=== PATIENT | female | born 1945 | race Caucasian/White ===

== ENCOUNTER 2016-08-30 17:48 | Inpatient (IN) | payer OTHER ==
[~2016-08-30] VITALS: Ht 157.5 cm; Wt 88.0 kg
[~2016-08-30 17:48] MED LIST: ATOR80TA PO; HYDR25TA4 PO; LSN20 PO; METO50TA16 PO; OXYC1TAB3 PO; PLV75 PO; PRLSR20 PO
--- NOTE | 2016-08-30 19:11 | EMERGENCY ROOM VISIT NOTE ---
History First contact with patient: 18:19 (Geoff Luz MD) First contact with patient: 18:18 (Chad Conn M.D.) Chief Complaint: NEURO SYMPTOMS Stated Complaint: LIGHT HEADED,NUMBNESS OF L LEG, HEADACHE Nursing Triage Summary: Pt reports on Tuesday she started to get tingly on the left side of her body Pt reports she is also dizzy hx TIA in march 2016 (Geoff Luz MD) History of Present Illness The patient is a 71 year old female w/ hx of TIA currently on plavix, (Mar 2016 , Hx 2mm Aneurysm on MRA), HTN, HLD who presents to the Emergency Room with complaints of hx of numbness/tingling. On the morning of Tuesday, 08/27 patient experienced episode of ascending numbness/tingling of the LLE. Symptoms started at the toes and gradually encompassed the entire leg. Eventually patient sat down to recover. Her symptoms come and go and since onset have grown in frequency. She also reports associated LÓPEZ and episodic sensation of the room spinning. She denies LOC, weakness, CP, SOB, palpitation. She experienced similar symptoms during her previous TIA. Pt denies, fevers, chest pain, shortness of breath, nausea, vomiting, diarrhea, pain with urination, change in stool (Geoff Luz MD) Review of Systems See HPI for pertinent positives & negatives. A total of 10 systems reviewed and were otherwise negative. (Geoff Luz MD) Past Medical/Surgical History Medical Problems: (1) Stroke (Chda Conn M.D.) HTN HLD DVT TIA (Geoff Luz MD) Social History Smoking Status: Never Smoker Alcohol Use: none Drug Use: none Housing Status: lives with family Occupation Status: retired (Geoff Luz MD) Current/Historical Medications Scheduled Atorvastatin Calcium (Lipitor), 1 TAB PO DAILY Clopidogrel Bisulfate (Clopidogrel), 75 MG PO QAM Hydrochlorothiazide (Hctz), 25 MG PO QAM Lisinopril (Lisinopril), 40 MG PO QAM Metoprolol Tartrate (Lopressor) (Lopressor), 50 MG PO BID Omeprazole (Prilosec), 20 MG PO BID Allergies Coded Allergies: No Known Allergies (Unverified , 08/30/16) Physical Exam Vital Signs Date Time Temp Pulse Resp B/P Pulse Ox O2 Delivery O2 Flow Rate FiO2 08/30/16 23:24 73 20 114/71 97 Room Air 08/30/16 22:05 76 19 08/30/16 21:35 69 19 94 08/30/16 21:30 143/94 08/30/16 21:05 66 19 99 08/30/16 21:00 154/88 08/30/16 20:48 67 16 97 08/30/16 20:40 63 08/30/16 20:30 143/90 08/30/16 20:24 73 18 149/77 98 Room Air 08/30/16 20:22 149/77 08/30/16 20:00 74 18 128/81 96 Room Air 08/30/16 18:05 36.5 77 18 132/82 96 Room Air (Chad Conn M.D.) Physical Exam GENERAL: alert, well appearing, well nourished, no distress, non-toxic EYE EXAM: normal conjunctiva, PERRL and EOM's grossly intact NECK: supple, no nuchal rigidity, no adenopathy, non-tender LUNGS: Clear to auscultation. Normal chest wall mechanics HEART: no murmurs, S1 normal and S2 normal ABDOMEN: abdomen soft, non-tender, normo-active bowel sounds, no masses, no rebound or guarding. SKIN: no rashes and no bruising UPPER EXTREMITIES: upper extremities are grossly normal. LOWER EXTREMITIES: No pitting edema. NEURO EXAM: Normal sensorium, cranial nerves II-XII grossly intact, normal speech, no weakness of arms, no weakness of legs. No drift. Gross sensation intact. (Geoff Luz MD) Medical Decision & Procedures ER Provider Diagnostic Interpretation: HEAD CT NONCONTRAST CT DOSE: 601.98 mGy.cm HISTORY: Mental status change Stroke TECHNIQUE: Multiaxial CT images of the head were performed without the use of intravenous contrast. Comparison: 03/23/2016 Findings: The paranasal sinuses and mastoid air cells are clear. The calvarium and skull base are intact. The ventricles and sulci are within normal limits. There is no mass, hematoma, midline shift, or acute infarct. Impression: No acute intracranial abnormality. (Geoff Luz MD) Laboratory Results 3/27/17 20:00 Red Blood Count 4.00, Mean Corpuscular Volume 85.0, Mean Corpuscular Hemoglobin 28.5, Mean Corpuscular Hemoglobin Concent 33.5, Mean Platelet Volume 9.5, Neutrophils (%) (Auto) 58.4, Lymphocytes (%) (Auto) 33.3, Monocytes (%) (Auto) 6.7, Eosinophils (%) (Auto) 1.2, Basophils (%) (Auto) 0.2, Neutrophils # (Auto) 3.48, Lymphocytes # (Auto) 1.98, Monocytes # (Auto) 0.40, Eosinophils # (Auto) 0.07, Basophils # (Auto) 0.01 08/30/16 20:00 Test 08/30/16 20:00 08/30/16 20:06 White Blood Count 5.95 K/uL (4.8-10.8) Red Blood Count 4.00 M/uL (4.2-5.4) Hemoglobin 11.4 g/dL (12.0-16.0) Hematocrit 34.0 % (37-47) Mean Corpuscular Volume 85.0 fL (80-100) Mean Corpuscular Hemoglobin 28.5 pg (25-34) Mean Corpuscular Hemoglobin Concent 33.5 g/dl (32-36) Platelet Count 280 K/uL (130-400) Mean Platelet Volume 9.5 fL (7.4-10.4) Neutrophils (%) (Auto) 58.4 % Lymphocytes (%) (Auto) 33.3 % Monocytes (%) (Auto) 6.7 % Eosinophils (%) (Auto) 1.2 % Basophils (%) (Auto) 0.2 % Neutrophils # (Auto) 3.48 K/uL (1.4-6.5) Lymphocytes # (Auto) 1.98 K/uL (1.2-3.4) Monocytes # (Auto) 0.40 K/uL (0.11-0.59) Eosinophils # (Auto) 0.07 K/uL (0-0.5) Basophils # (Auto) 0.01 K/uL (0-0.2) RDW Standard Deviation 45.1 fL (36.4-46.3) RDW Coefficient of Variation 14.3 % (11.5-14.5) Immature Granulocyte % (Auto) 0.2 % Immature Granulocyte # (Auto) 0.01 K/uL (0.00-0.02) Prothrombin Time 10.5 SECONDS (9.0-12.0) Prothromb Time International Ratio 1.0 (0.9-1.1) Activated Partial Thromboplast Time 29.9 SECONDS (21.0-31.0) Partial Thromboplastin Ratio 1.2 Anion Gap 7.0 mmol/L (3-11) Est Creatinine Clear Calc Drug Dose 57.9 ml/min Estimated GFR () 70.8 Estimated GFR (Non- 61.1 BUN/Creatinine Ratio 24.1 (10-20) Bedside Glucose 80 mg/dl (70-90) Calcium Level 9.0 mg/dl (8.5-10.1) Troponin I < 0.015 ng/ml (0-0.045) Chemistry Specimen Hemolysis Bedside Prothrombin Time INR 1.0 (0.9-1.1) (Chad Conn M.D.) Medications Administered Medications (Trade) Dose Ordered Sig/Laz Route Start Time Stop Time Status Last Admin Dose Admin Ketorolac Tromethamine (Toradol Inj) 15 mg NOW STAT IV 08/30/16 21:00 08/30/16 21:01 DC 08/30/16 21:18 15 MG Ondansetron HCl (Zofran Inj) 4 mg NOW STAT IV 08/30/16 21:00 08/30/16 21:01 DC 08/30/16 21:17 4 MG (Chad Conn M.D.) Medical Decision Differential Diagnosis includes but is not limited to ischemic Stroke, hemorrhagic stroke, bells palsy, mass, neoplasm, migraine headache, seizure, subarachnoid hemorrhage, TIA, and transient global amnesia. 71 yo F wx hx of TIA (Mar 2016) on Plavix , HTN, HLD p/w progressive paresthesia of the LLE and vertigo sensation Acute LLE Paresthesia, vertigo Hx of TIA, similar symptoms to previous, could be due new TIA vs CVA CT Head: No acute intracranial abnormality ECG: NSR Troponin neg CBC: H/H 11.4/34/0 , otherwise unremarkable BMP: unremarkable INR: 1.0 -Given IV Toradol 15 mg for pain -Given IV Zofran 4 mg for nausea Discussed case with Dr. Cabrera on the Hospitalist who agreed to admit for further CVA workup (Geoff Luz MD) Resident Physician Supervision Note: Dr. Luz was resident physician during care of patient. I separately evaluated patient and did history and exam. I discussed the case with the resident and generally agree with the findings and plan. Please see my full H& P note for complete documentation. Documented By: Chad Conn MD (Chad Conn M.D.) Impression Primary Impression: Left leg paresthesias Additional Impression: Headache Departure Information Dispostion Admitted as an inpatient Referrals Nanci Null PA-C (PCP) Patient Instructions My [facility] Resident Tracking Resident Involvement: Resident Care Provided Care Provided: Adult ED (Geoff Luz MD) Problem Qualifiers Additional Impression: Headache Headache type: unspecified Headache chronicity pattern: unspecified pattern Intractability: not intractable Qualified Codes: R51 - Headache
--- NOTE | 2016-08-30 20:21 | DIAGNOSTIC IMAGING REPORT ---
HEAD CT NONCONTRAST CT DOSE: 601.98 mGy.cm HISTORY: Mental status change Stroke TECHNIQUE: Multiaxial CT images of the head were performed without the use of intravenous contrast. Comparison: 03/23/2016 Findings: The paranasal sinuses and mastoid air cells are clear. The calvarium and skull base are intact. The ventricles and sulci are within normal limits. There is no mass, hematoma, midline shift, or acute infarct. Impression: No acute intracranial abnormality. Electronically signed by: Familia Escalante M.D. 08/30/2016 8:20 PM Dictated Date/Time: 08/30/2016 8:19 PM
[2016-08-30 20:26] LABS: BASO % 0.2 %; BASO ABS # 0.01 K/uL (0-0.2); COMPLETE YES; EOS % 1.2 %; IG% 0.2 %; LYMPH % 33.3 %; LYMPH ABS # 1.98 K/uL (1.2-3.4); MEAN CORPUSCULAR HEMOGLOBIN 28.5 pg (25-34); MEAN CORPUSCULAR HGB CONC 33.5 g/dl (32-36); MEAN PLATELET VOLUME 9.5 fL (7.4-10.4); MONO % 6.7 %; NEUT % 58.4 %; PLATELET COUNT 280 K/uL (130-400); WHITE BLOOD COUNT 5.95 K/uL (4.8-10.8)
[2016-08-30 20:48] LABS: PARTIAL THROMBOPLASTIN RATIO 1.2; PROTHROMBIN TIME (PATIENT) 10.5 SECONDS (9.0-12.0)
[2016-08-30 20:55] LABS: BLOOD UREA NITROGEN 23 mg/dl (7-18); BUN/CREATININE RATIO 24.1 (10-20); CARBON DIOXIDE 30 mmol/L (21-32); CHLORIDE 105 mmol/L (98-107); CREATININE 0.95 mg/dl (0.60-1.20); GLUCOSE 93 mg/dl (70-99); POTASSIUM 4.2 mmol/L (3.5-5.1); SODIUM 142 mmol/L (136-145)
[2016-08-30] MEDS ORDERED: ONDANSETRON INJ 2 MG/ML 2 ML VIAL IV STA (21:00)
[2016-08-30] MEDS ORDERED: KETOROLAC TROMETHAMINE 30 MG/ML VIAL IV STA (21:00)
--- NOTE | 2016-08-30 22:12 | History and Physical ---
History & Physical Date & Time of Service: Aug 30, 2016 at 22:13 Chief Complaint: Light Headed,Numbness Of L Leg, Headache Primary Care Physician: Nanci Null PA-C History of Present Illness Source: patient This is a pleasant 71 y/o F with a history of TIA, HTN who presents with Left sided paraesthesias. She reports that about 5 days ago, she was going to her grandsons room and as she was lifting his comforter, she felt dizzy and felt as if she was falling to her right side. She sat down for about 15 mins after which her dizziness improved but she noted Left sided numbness/tingling. This persisted throughout the weekend but she did not inform her son or daughter in law. This morning she didnt feel too good and her left side was persistently numb and she mentions tingling in her head. She has some blurry vision with this that is intermittent. She denies speech disturbances, dysphagia, urinary/ bowel incontinence. She is able to walk without weakness in her lower extremities She presented similarly in Mar and had a TIA work-up which was largely unremarkable except for a 2 mm L MCA aneurysm. no Family history of strokes or hypercoagulable states Past Medical/Surgical History TIA HTN DVT Family History Cancer Hypertension Social History Smoking Status: Never Smoker Alcohol Use: none Drug Use: none Housing status: lives alone Occupational Status: retired Allergies Coded Allergies: No Known Allergies (Unverified , 08/30/16) Home Medications Scheduled Aspirin (Aspirin EC Low Dose), 81 MG PO QAM Atorvastatin Calcium (Lipitor), 1 TAB PO DAILY Clopidogrel Bisulfate (Clopidogrel), 75 MG PO QAM Hydrochlorothiazide (Hctz), 25 MG PO QAM Lisinopril (Lisinopril), 40 MG PO QAM Metoprolol Tartrate (Lopressor) (Lopressor), 50 MG PO BID Omeprazole (Prilosec), 20 MG PO BID Review of Systems Constitutional: No chills, No fever Eyes: + worsening of vision Respiratory: No cough, No dyspnea at rest, No dyspnea on exertion, No shortness of breath, No sputum, No wheezing Cardiovascular: No chest pain Abdomen: No diarrhea, No nausea, No pain, No vomiting Genitourinary - Female: No dysuria, No urinary frequency, No urinary incontinence, No urinary urgency Neurologic: + numbness/tingling, + vertigo, No memory loss, No paralysis, No weakness Physical Exam Vital Signs Date Time Temp Pulse Resp B/P Pulse Ox O2 Delivery O2 Flow Rate FiO2 08/30/16 21:00 154/88 08/30/16 20:48 67 16 97 08/30/16 20:40 63 08/30/16 20:30 143/90 08/30/16 20:24 73 18 149/77 98 Room Air 08/30/16 20:22 149/77 08/30/16 20:00 74 18 128/81 96 Room Air 08/30/16 18:05 36.5 77 18 132/82 96 Room Air General Appearance: no apparent distress Eyes: normal inspection, PERRL, EOMI ENT: hearing grossly normal Neck: supple, no adenopathy, thyroid normal, no JVD Respiratory/Chest: lungs clear, normal breath sounds, no respiratory distress, no accessory muscle use Cardiovascular: regular rate, rhythm, no edema, no murmur Abdomen/GI: normal bowel sounds, non tender, soft Back: no CVA tenderness Extremities/Musculoskelatal: no calf tenderness, normal capillary refill, no pedal edema 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, no motor/sensory deficits, alert, normal mood/affect, normal reflexes, oriented x 3, + pertinent finding (normal cerebellar testing, normal dysdiadochokinesia) Diagnostics Laboratory Results Results Past 24 Hours Test 08/30/16 20:00 Range/Units White Blood Count 5.95 4.8-10.8 K/uL Red Blood Count 4.00 4.2-5.4 M/uL Hemoglobin 11.4 12.0-16.0 g/dL Hematocrit 34.0 37-47 % Mean Corpuscular Volume 85.0 80-100 fL Mean Corpuscular Hemoglobin 28.5 25-34 pg Mean Corpuscular Hemoglobin Concent 33.5 32-36 g/dl Platelet Count 280 130-400 K/uL Mean Platelet Volume 9.5 7.4-10.4 fL Neutrophils (%) (Auto) 58.4 % Lymphocytes (%) (Auto) 33.3 % Monocytes (%) (Auto) 6.7 % Eosinophils (%) (Auto) 1.2 % Basophils (%) (Auto) 0.2 % Neutrophils # (Auto) 3.48 1.4-6.5 K/uL Lymphocytes # (Auto) 1.98 1.2-3.4 K/uL Monocytes # (Auto) 0.40 0.11-0.59 K/uL Eosinophils # (Auto) 0.07 0-0.5 K/uL Basophils # (Auto) 0.01 0-0.2 K/uL RDW Standard Deviation 45.1 36.4-46.3 fL RDW Coefficient of Variation 14.3 11.5-14.5 % Immature Granulocyte % (Auto) 0.2 % Immature Granulocyte # (Auto) 0.01 0.00-0.02 K/uL Prothrombin Time 10.5 9.0-12.0 SECONDS Prothromb Time International Ratio 1.0 0.9-1.1 Activated Partial Thromboplast Time 29.9 21.0-31.0 SECONDS Partial Thromboplastin Ratio 1.2 Sodium Level 142 136-145 mmol/L Potassium Level 4.2 3.5-5.1 mmol/L Chloride Level 105 98-107 mmol/L Carbon Dioxide Level 30 21-32 mmol/L Anion Gap 7.0 3-11 mmol/L Blood Urea Nitrogen 23 7-18 mg/dl Creatinine 0.95 0.60-1.20 mg/dl Est Creatinine Clear Calc Drug Dose 57.9 ml/min Estimated GFR () 70.8 Estimated GFR (Non- 61.1 BUN/Creatinine Ratio 24.1 10-20 Bedside Glucose 80 70-90 mg/dl Random Glucose 93 70-99 mg/dl Calcium Level 9.0 8.5-10.1 mg/dl Troponin I < 0.015 0-0.045 ng/ml Chemistry Specimen Hemolysis Impression Assessment and Plan This is a 71 y/o F who presents with left sided paraesthesias, concerning for TIA vs. CVA. No infectious/ metabolic etiologies obvious at this time. Left sided Paraesthesia and dizziness: CT head is negative Patient has already received circulatory imaging during previous admission that was largely unrevealing except for 2 mm L MCA aneurysm Will do a brain MRI but hold on Carotid u/s and MRA Continue Plavix, statin Consult Neurology Question need for hypercoagulable work up? troponin x 3 Echo HTN: continue Lisinopril, metoprolol Normocytic, normochromic anemia- stable f/u outpatient DVT: Proph Lovenox Level of Care Telemetry Resuscitation Status FULL RESUSCITATION Assessment and Plan Attending Addendum: I have physically seen and examined this patient, have directed their medical care, have supervised the medical residents activities, and agree with the H&P as noted above, with the following changes: The patient is awake, well-developed and adequately nourished, alert and oriented 3, normocephalic and atraumatic, lying in bed and in no acute distress. HEENT--PERRL, EOMI, mucous membranes and oropharynx dry. Neck--supple, no JVD or bruits, thyroid normal, trachea midline, no adenopathy. Heart--normal S1 and S2, no extra beats, no murmurs, rubs or gallops. Lungs--clear bilaterally with good air movement, no respiratory distress, no accessory muscle use. Abdomen--normal bowel sounds and soft, nontender and nondistended, no hernias or masses, no organomegaly. Extremities--no cyanosis, clubbing or edema. There are good distal pulses b/l. Dermatologic--normal skin turgor, normal color, warm and dry, no abnormal lymph nodes, no rash. Neurologic--cranial nerves II through XII grossly intact, decreased sensation left upper and lower extremities. Rheumatologic--normal range of motion, nontender, muscles and joints. Psychiatric--normal affect. Assessment and Plan: Left side paresthesias/hypertension--CT of the head negative this visit, with negative MRI, MRA and carotid studies at last admission. We'll order an MRI of the brain today for comparison. Continue clopidogrel 75 mg by mouth daily , lisinopril 40 mg by mouth every morning, and metoprolol tartrate 50 mg by mouth twice a day. Hold HCTZ 25 mg by mouth every morning. Add aspirin 81 mg by mouth every a.m. Hypercholesterolemia--continue atorvastatin. GERD--change omeprazole 20 mg by mouth twice a day pantoprazole 40 mg by mouth twice a day for formulary interchange.
--- NOTE | 2016-08-30 22:20 | EMERGENCY ROOM VISIT NOTE ---
History Report prepared by Beulah: Amada Reed Under the Supervision of: Dr. Chad Conn M.D. First contact with patient: 18:18 Chief Complaint: NEURO SYMPTOMS Stated Complaint: LIGHT HEADED,NUMBNESS OF L LEG, HEADACHE Nursing Triage Summary: Pt reports on Tuesday she started to get tingly on the left side of her body Pt reports she is also dizzy hx TIA in march 2016 History of Present Illness The patient is a 71 year old female who presents to the Emergency Room with complaints of intermittent and worsening left-sided numbness that started 3 days ago. The patient states that she experiences episodes of tingling and numbness that start in her left lower extremity then gradually ascended to encompass the whole left side of her body. Over the last couple days, episodes have been increasing in severity. She is also experiencing a diffuse headache and bilateral leg pain that is worse on the left than the right. She denies chest pain, trouble breathing, back pain, and abdominal pain. The patient had a TIA in March of 2016 and she states that her current symptoms feel similar to that. The patient has previously been diagnosed with a 2 mm aneurysm by MRI. The patient is on Plavix. Source of History: patient Onset: 3 days ago Position: other (left side of body) Quality: numbness Timing: intermittent, worsening Associated Symptoms: + headache, No abdominal pain, No back pain, No chest pain Note: bilateral leg pain left greater than right, no trouble breathing Review of Systems See HPI for pertinent positives & negatives. A total of 10 systems reviewed and were otherwise negative. Past Medical & Surgical Medical Problems: (1) Stroke Family History Cancer Hypertension Social History Smoking Status: Never Smoker Drug Use: none Housing Status: lives with family Current/Historical Medications Scheduled Atorvastatin Calcium (Lipitor), 1 TAB PO DAILY Clopidogrel Bisulfate (Clopidogrel), 75 MG PO QAM Hydrochlorothiazide (Hctz), 25 MG PO QAM Lisinopril (Lisinopril), 40 MG PO QAM Metoprolol Tartrate (Lopressor) (Lopressor), 50 MG PO BID Omeprazole (Prilosec), 20 MG PO BID Allergies Coded Allergies: No Known Allergies (Unverified , 08/30/16) Physical Exam Vital Signs Date Time Temp Pulse Resp B/P Pulse Ox O2 Delivery O2 Flow Rate FiO2 08/30/16 23:24 73 20 114/71 97 Room Air 3/27/17 22:05 76 19 08/30/16 21:35 69 19 94 08/30/16 21:30 143/94 08/30/16 21:05 66 19 99 08/30/16 21:00 154/88 08/30/16 20:48 67 16 97 08/30/16 20:40 63 08/30/16 20:30 143/90 08/30/16 20:24 73 18 149/77 98 Room Air 08/30/16 20:22 149/77 08/30/16 20:00 74 18 128/81 96 Room Air 08/30/16 18:05 36.5 77 18 132/82 96 Room Air Physical Exam GENERAL: Patient is well appearing and in no acute distress. HEENT: No acute trauma, normocephalic atraumatic, mucous membranes moist, no nasal congestion, no scleral icterus. NECK: No stridor, no adenopathy, no meningismus, trachea is midline. LUNGS: No dyspnea. Clear to auscultation and equal bilaterally. No wheeze, no rhonchi. HEART: Regular rate and rhythm. No murmurs, rubs, gallops appreciated. ABDOMEN: Soft, nontender, bowel sounds positive, no masses appreciated, no peritonitis. BACK: No midline tenderness, no CVA tenderness EXTREMITIES: Normal motion all extremities, no cyanosis, no edema. NEUROLOGIC: Alert and oriented, no acute motor or sensory deficits, no focal weakness, cranial nerves grossly intact. SKIN: No rash, no jaundice, no diaphoresis. Medical Decision & Procedures ER Provider Diagnostic Interpretation: CT results and stated below per my review and radiologist interpretation: HEAD CT NONCONTRAST Impression: No acute intracranial abnormality. Electronically signed by: Familia Escalante M.D. 08/30/2016 8:20 PM Dictated Date/Time: 08/30/2016 8:19 PM Laboratory Results 08/30/16 20:00 Red Blood Count 4.00, Mean Corpuscular Volume 85.0, Mean Corpuscular Hemoglobin 28.5, Mean Corpuscular Hemoglobin Concent 33.5, Mean Platelet Volume 9.5, Neutrophils (%) (Auto) 58.4, Lymphocytes (%) (Auto) 33.3, Monocytes (%) (Auto) 6.7, Eosinophils (%) (Auto) 1.2, Basophils (%) (Auto) 0.2, Neutrophils # (Auto) 3.48, Lymphocytes # (Auto) 1.98, Monocytes # (Auto) 0.40, Eosinophils # (Auto) 0.07, Basophils # (Auto) 0.01 08/30/16 20:00 Test 08/30/16 20:00 08/30/16 20:06 White Blood Count 5.95 K/uL (4.8-10.8) Red Blood Count 4.00 M/uL (4.2-5.4) Hemoglobin 11.4 g/dL (12.0-16.0) Hematocrit 34.0 % (37-47) Mean Corpuscular Volume 85.0 fL (80-100) Mean Corpuscular Hemoglobin 28.5 pg (25-34) Mean Corpuscular Hemoglobin Concent 33.5 g/dl (32-36) Platelet Count 280 K/uL (130-400) Mean Platelet Volume 9.5 fL (7.4-10.4) Neutrophils (%) (Auto) 58.4 % Lymphocytes (%) (Auto) 33.3 % Monocytes (%) (Auto) 6.7 % Eosinophils (%) (Auto) 1.2 % Basophils (%) (Auto) 0.2 % Neutrophils # (Auto) 3.48 K/uL (1.4-6.5) Lymphocytes # (Auto) 1.98 K/uL (1.2-3.4) Monocytes # (Auto) 0.40 K/uL (0.11-0.59) Eosinophils # (Auto) 0.07 K/uL (0-0.5) Basophils # (Auto) 0.01 K/uL (0-0.2) RDW Standard Deviation 45.1 fL (36.4-46.3) RDW Coefficient of Variation 14.3 % (11.5-14.5) Immature Granulocyte % (Auto) 0.2 % Immature Granulocyte # (Auto) 0.01 K/uL (0.00-0.02) Prothrombin Time 10.5 SECONDS (9.0-12.0) Prothromb Time International Ratio 1.0 (0.9-1.1) Activated Partial Thromboplast Time 29.9 SECONDS (21.0-31.0) Partial Thromboplastin Ratio 1.2 Anion Gap 7.0 mmol/L (3-11) Est Creatinine Clear Calc Drug Dose 57.9 ml/min Estimated GFR () 70.8 Estimated GFR (Non- 61.1 BUN/Creatinine Ratio 24.1 (10-20) Bedside Glucose 80 mg/dl (70-90) Calcium Level 9.0 mg/dl (8.5-10.1) Troponin I < 0.015 ng/ml (0-0.045) Chemistry Specimen Hemolysis Bedside Prothrombin Time INR 1.0 (0.9-1.1) Laboratory results as reviewed by me. Medications Administered Medications (Trade) Dose Ordered Sig/Laz Route Start Time Stop Time Status Last Admin Dose Admin Ketorolac Tromethamine (Toradol Inj) 15 mg NOW STAT IV 08/30/16 21:00 08/30/16 21:01 DC 08/30/16 21:18 15 MG Ondansetron HCl (Zofran Inj) 4 mg NOW STAT IV 08/30/16 21:00 08/30/16 21:01 DC 08/30/16 21:17 4 MG ECG Indication: weakness Rate (beats per minute): 73 Rhythm: normal sinus Findings: no acute ischemic change, no ectopy ED Course 1852: The patient was evaluated in room B12. A complete history and physical exam was performed. 2057: Upon reevaluation, the patient is resting comfortably. She is still complaining of paraesthesias. She also has more of a headache now. I offered the options of going home or staying for observation and both the patient and her family feel that she should stay be observed. Discussed results and treatment plan with the patient. She verbalized understanding and agreement with the treatment plan. The patient will be evaluated for further management. 2100: Ordered Zofran Inj 4 mg IV, Toradol Inj 15 mg IV 2132: Discussed the patient's case [place] Dinh [place] [facility] [place] The patient will be evaluated for further treatment and disposition. Medical Decision Differential: Sepsis, Infectious (UTI/Pneumonia/Meningitis/etc), Metabolic/ Electrolyte Abnormality, Cardiac, Hepatic, Endocrine, Toxicologic, Neurologic, amongst other pathologies entertained. 71 yr old female arrives with complaint of left sided arm/leg tingling/ paresthesias along with headache which worsened post CT. Work-up unremarkable and patient without neuro deficits. She notes this is similar to TIA she was diagnosed with 6 months ago. Review of chart from that time notes unremarkable CT, MRI, Vascu US and an MRA with 2mm aneurysm. She does not have evidence of SAH at this time and I do not feel that her Aneurysm has ruptured. Given concern for possible CVA hospitalist has been consulted. No evidence this is cardiac, dissection, infectious, metabolic. Consults Time Called: 2007 Consulting Physician: Dr. Allegra ORTIZ Returned Call: [phone] Discussed the patient's case with Dr. Allegra ORTIZ. The patient will be evaluated for further treatment and disposition. Impression Primary Impression: Paresthesia of left arm Additional Impressions: Left leg paresthesias Headache Scribe Attestation The scribe's documentation has been prepared under my direction and personally reviewed by me in its entirety. I confirm that the note above accurately reflects all work, treatment, procedures, and medical decision making performed by me. Departure Information Dispostion Being Evaluated By Hospitalist Referrals Nanci Null PA-C (PCP) Patient Instructions My [facility] Problem Qualifiers Additional Impressions: Headache Headache type: unspecified Headache chronicity pattern: unspecified pattern Intractability: not intractable Qualified Codes: R51 - Headache
[2016-08-30] MEDS ORDERED: POLYETHYLENE (MIRALAX) 17 GM PACK PO PRN (23:30)
[2016-08-30] MEDS ORDERED: ACETAMINOPHEN 325 MG TAB PO PRN (23:30)
[2016-08-30] MEDS ORDERED: ALUMINUM/MAGNESIUM/SIMETH (MAALOX MAX) 30 ML UDC PO PRN (23:30)
[2016-08-30] MEDS ORDERED: ONDANSETRON INJ 2 MG/ML 2 ML VIAL IV PRN (23:30)
[2016-08-30] MEDS ORDERED: NITROGLYCERIN 0.4 MG SL PER TAB CHARGE SL PRN (23:30)
[2016-08-30] MEDS ORDERED: MAGNESIUM HYDROXIDE SUSP 30 ML UDC PO PRN (23:30)
[2016-08-30] MEDS ORDERED: PHARMACIST DISCHARGE MED REC CONSULT PRN (23:30)
[2016-08-31] VITALS (10 sets, daily range): BP systolic 117–166; BP diastolic 76–105; PULSE 62–83; TEMP 36.5–37.1; O2SAT 93–97; Ht 157.5 cm; Wt 88.0 kg
[2016-08-31] MEDS: ENOXAPARIN 40 MG/0.4 ML SYR SC SCH (05:39)
[2016-08-31 06:32] LABS: BASO % 0.3 %; BASO ABS # 0.02 K/uL (0-0.2); COMPLETE YES; EOS % 1.6 %; HEMATOCRIT 33.3 % (37-47); LYMPH % 30.3 %; LYMPH ABS # 1.75 K/uL (1.2-3.4); MEAN CELL VOLUME 84.9 fL (80-100); MEAN CORPUSCULAR HEMOGLOBIN 28.6 pg (25-34); MEAN CORPUSCULAR HGB CONC 33.6 g/dl (32-36); MEAN PLATELET VOLUME 9.6 fL (7.4-10.4); MONO % 5.9 %; NEUT % 61.9 %; PLATELET COUNT 265 K/uL (130-400); RED BLOOD COUNT 3.92 M/uL (4.2-5.4); WHITE BLOOD COUNT 5.77 K/uL (4.8-10.8)
[2016-08-31 06:58] LABS: BLOOD UREA NITROGEN 29 mg/dl (7-18); CALCIUM 9.1 mg/dl (8.5-10.1); CARBON DIOXIDE 28 mmol/L (21-32); CHLORIDE 107 mmol/L (98-107); CHOLESTEROL 175 mg/dl (0-200); GLUCOSE 79 mg/dl (70-99); POTASSIUM 4.2 mmol/L (3.5-5.1); SODIUM 143 mmol/L (136-145)
[2016-08-31 07:02] LABS: CHOLESTEROL/HDL RATIO 2.8; HDL CHOLESTEROL 62 mg/dl; LDL CHOLESTEROL CALCULATED 93 mg/dl; TRIGLYCERIDES 101 mg/dl (0-150); VERY LOW DENSITY LIPOPROT CALC 20 mg/dl
[2016-08-31 07:47] LABS: BENZODIAZEPINE, URINE NEG (NEG); COCAINE,URINE NEG (NEG); PHENCYCLIDINE, URINE NEG (NEG)
[2016-08-31 07:59] LABS: ESTIMATED AVERAGE GLUCOSE 126 mg/dl
[2016-08-31] MEDS ORDERED: PNEUMOCOCCAL POLYSACCHARIDES 25 MCG/0.5 ML VIAL/SYR IM. ONE (08:00)
[2016-08-31] MEDS ORDERED: PNEUMOCOCCAL ADMINISTRATION CHARGE ONE (08:00)
[2016-08-31 08:27] LABS: HA1C FLAG Peak Unknown (Normal)
[2016-08-31] MEDS: CLOPIDOGREL BISULFATE 75 MG TAB PO SCH (08:29)
[2016-08-31] MEDS: HYDROCHLOROTHIAZIDE 25 MG TAB PO SCH (08:29)
[2016-08-31] MEDS: LISINOPRIL 20 MG TAB PO SCH (08:30)
[2016-08-31] MEDS: ATORVASTATIN 40 MG TAB PO SCH (08:30)
[2016-08-31] MEDS: METOPROLOL TARTRATE 50 MG TAB PO SCH ×2 (08:30→19:27)
--- NOTE | 2016-08-31 09:59 | Neurology Consultation ---
Neurology Consultation Date of Consultation: Aug 31, 2016. Attending Physician: Fernando Dinh M.D. Primary Care Physician: Sallie Loco MD Reason for Consultation: Patient is a 71-year-old, who was asked to see the request of Dr. Loco, for neurologic consultation regarding acute left-sided weakness question stroke versus TIA. History of Present Illness Source: patient, caregiver, clinic records, hospital records The patient had a neurologic event in March 2016 consisting of some left- sided weakness and numbness was some mild speech issues. It was short lived, lasting hours, then resolved. It was determined to be a TIA. At that time, an MRI of the brain was obtained and showed some scattered white matter spots of an old ischemic nature. There was no new stroke. There was an enlarged pituitary gland of a homogeneous nature. 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 Carotid ultrasound was unremarkable. It was noted that time that she had a significant headache and elevated blood pressure. She was switched from aspirin to Plavix at that time. The patient saw Dr. Mak as an outpatient in April 2016. Echocardiogram was largely unremarkable. Dr. Mak concurred that this was likely a TIA and agreed with Plavix. She has not seen Dr. Mak since. The patient was doing very well although on she missed a step fell, fracturing her left tibia and tearing her left knee meniscus. She limps some because of this. Some time on August 27, the patient was trying to lift accompanied her and felt dizzy and lean to the right. She noticed some left-sided tingling on her leg arm and face. It started the leg and ascended up to the side of the body arm and face over several seconds. It lasted for a few minutes and sitting for 15 minutes made her feel better. It happened on and off for over the next 2 days but the morning of August 30 it returned more severely. She had a diffuse headache and some pain in the left greater than right leg. August 30 at 1/8/05 hours she came to the emergency room with a temperature 36.5 , pulse 77 regular, respiratory rate 18, blood pressure 132/82, and O2 saturation 96%. There were no focal neurologic findings at that time and her symptoms had resolved. CT scan of the head was unremarkable. CBC showed mild anemia and chem and lipid profiles were unremarkable. Since admission, she has had no headache or pain. She has some slight weakness but the tingling has resolved. The weakness is in the leg and arm on the left but not the face. She has had some neck pain but recently this has been of little better. She has chronic low back pain. She has balance issues over the last several months but is not falling anymore. She has no incontinence of urine. Currently the patient denies chest pain, shortness of breath, abdominal pain, speech or mentation problems or new vision problems. The patient has had some moving vision at times when she looks to her glasses at a certain way lasting a second or 2 but does not have this now has no double vision. Past Medical/Surgical History Medical Problems: (1) CVA (cerebral vascular accident) Status: Acute (2) Fracture of proximal end of left fibula Status: Acute (3) Headache Status: Acute (4) Left leg paresthesias Status: Acute (5) Paresthesia of left arm Status: Acute Hypertension History of DVT Dyslipidemia Gastroesophageal reflux disease Post tubal ligation, hysterectomy, and leg vein stripping in the past Family History Mother age 63 of uterine cancer. Patient does not know anything about her biologic father Social History Patient never smoked cigarettes and does not use alcohol. 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 She has a sister with a history of migraine headaches. Alcohol Use: none Drug Use: none Housing Status: lives with family Occupation Status: retired Allergies Coded Allergies: No Known Allergies (Unverified , 08/30/16) Current Inpatient Medications Current Inpatient Medications Medications (Trade) Dose Ordered Sig/Laz Route Start Time Stop Time Status Last Admin Dose Admin Miscellaneous Information (Pharmacist Discharge Med Rec Consult) 1 ea UD PRN N/A 08/30/16 23:30 09/29/16 23:29 Enoxaparin Sodium (Lovenox Inj) 40 mg Q24H SC 08/31/16 06:00 09/30/16 05:59 08/31/16 05:39 40 MG Acetaminophen (Tylenol Tab) 650 mg Q4H PRN PO 08/30/16 23:30 09/29/16 23:29 Al Hydrox/Mg Hydrox/Simethicone (Maalox Max Susp) 15 ml Q4H PRN PO 08/30/16 23:30 09/29/16 23:29 Magnesium Hydroxide (Milk Of Magnesia Susp) 30 ml Q12H PRN PO 08/30/16 23:30 09/29/16 23:29 Ondansetron HCl (Zofran Inj) 4 mg Q6H PRN IV 08/30/16 23:30 09/29/16 23:29 Nitroglycerin (Nitrostat Tab) 0.4 mg UD PRN SL 08/30/16 23:30 09/29/16 23:29 Polyethylene (Miralax Powder Packet) 17 gm DAILY PRN PO 08/30/16 23:30 09/29/16 23:29 Atorvastatin Calcium (Lipitor Tab) 80 mg QAM PO 08/31/16 09:00 09/30/16 08:59 08/31/16 08:30 80 MG Clopidogrel Bisulfate (plAVix TAB) 75 mg QAM PO 08/31/16 09:00 09/30/16 08:59 08/31/16 08:29 75 MG Hydrochlorothiazide (Hydrochlorothiazide Tab) 25 mg QAM PO 08/31/16 09:00 09/30/16 08:59 08/31/16 08:29 25 MG Lisinopril (Zestril Tab) 40 mg QAM PO 08/31/16 09:00 09/30/16 08:59 08/31/16 08:30 40 MG Metoprolol Tartrate (Lopressor Tab) 50 mg BID PO 08/31/16 09:00 09/30/16 08:59 08/31/16 08:30 50 MG Review of Systems Constitutional: + fatigue, + weakness Eyes: No worsening of vision ENT: No hearing loss, No tinnitus Respiratory: No cough, No shortness of breath Cardiovascular: No chest pain, No palpitations Abdomen: No nausea, No pain Musculoskeletal: No joint pain, No muscle pain Genitourinary - Female: No dysuria, No urinary frequency, No urinary incontinence Neurologic: + balance problems, + weakness, No memory loss, No numbness/ tingling, No vertigo Psychiatric: No anxiety, No depression symptoms Endocrine: + fatigue Hematologic / Lymphatic: No abnormal bleeding/bruising Integumentary: No rash Allergic / Immunologic: No hives Physical Exam Vital Signs (Past 24 Hrs): Date Time Temp Pulse Resp B/P Pulse Ox O2 Delivery O2 Flow Rate FiO2 08/31/16 08:00 Room Air 08/31/16 07:45 36.5 69 18 135/88 93 Room Air 08/31/16 05:39 63 147/78 08/31/16 04:09 36.5 65 18 166/89 96 Room Air 08/31/16 04:00 Room Air 08/31/16 01:47 36.6 62 20 134/78 95 Room Air 08/31/16 00:55 36.5 73 20 151/105 95 Room Air 08/31/16 00:38 36.5 20 151/105 Room Air 08/31/16 00:25 77 16 136/81 97 08/30/16 23:24 73 20 114/71 97 Room Air 08/30/16 22:05 76 19 08/30/16 21:35 69 19 94 08/30/16 21:30 143/94 08/30/16 21:05 66 19 99 08/30/16 21:00 154/88 08/30/16 20:48 67 16 97 08/30/16 20:40 63 08/30/16 20:30 143/90 08/30/16 20:24 73 18 149/77 98 Room Air 08/30/16 20:22 149/77 08/30/16 20:00 74 18 128/81 96 Room Air 08/30/16 18:05 36.5 77 18 132/82 96 Room Air The patient is right-handed. The patient is awake and alert. Speech is normal without aphasia or dysarthria. Mentation and thought processes are intact with orientation and normal fund of knowledge. Mood and affect are normal and appropriate. Appearance and grooming are normal. The discs are sharp with positive venous pulsations. There are no exudates, hemorrhages, or blood vessel changes seen. Pupils are 3mm bilaterally and reactive to light. Extraocular eye muscles are intact without nystagmus. Visual acuity and visual peacock seem normal grossly to confrontation. There are no deficits to sensation of the face bilaterally. Corneal reflexes are positive bilaterally. Facial strength and symmetry is normal bilaterally. Hearing seems intact grossly to voice and finger rub. Palate moves well without asymmetry. There is normal sternocleidomastoid and trapezius strength bilaterally. Tongue is midline with good strength bilaterally. Neck is with full range of motion without discomfort. There are no cervical bruits. There are no cranial or ocular bruits. Heart is without murmur. Cervical spine has mild tenderness at the base over the spinous processes, but the thoracic and lumbar spine are largely nontender to palpation. Gait is is not tested but stance sitting up in in the chair is normal With outstretched arms there is no obvious drift. There are no resting, postural, or action tremors. There is no ataxia with [id number] testing. There is a mild decreased facility in the left hand compared to the right. There are no abnormal involuntary movements noted. Motor strength is 5/5 diffusely in the right upper and right lower extremities both proximally and distally. The left arm and leg are 4-4+/5 diffusely both proximally and distally. The limbs have good tone without rigidity or spasticity, and there is no atrophy noted. Muscle bulk is normal, there is no tenderness, no myotonia noted to percussion, and no fasciculations seen. Sensory examination is intact to pin and touch throughout all four limbs. Reflexes are 1/4 in the biceps, triceps, brachioradialis, and quadriceps tendons bilaterally. Achilles tendon reflexes are absent bilaterally. Toes are downgoing with plantar stimulation bilaterally. Peripheral pulses are present and of normal quality distally in all four limbs. There is no peripheral edema noted. Laboratory Results Past 24 Hours: 08/31/16 05:33 Red Blood Count 3.92, Mean Corpuscular Volume 84.9, Mean Corpuscular Hemoglobin 28.6, Mean Corpuscular Hemoglobin Concent 33.6, Mean Platelet Volume 9.6, Neutrophils (%) (Auto) 61.9, Lymphocytes (%) (Auto) 30.3, Monocytes (%) (Auto) 5.9, Eosinophils (%) (Auto) 1.6, Basophils (%) (Auto) 0.3, Neutrophils # (Auto) 3.57, Lymphocytes # (Auto) 1.75, Monocytes # (Auto) 0.34, Eosinophils # (Auto) 0.09, Basophils # (Auto) 0.02 08/31/16 05:53 Test 08/30/16 20:00 08/30/16 20:06 08/31/16 05:33 08/31/16 05:53 Prothrombin Time 10.5 SECONDS (9.0-12.0) Prothromb Time International Ratio 1.0 (0.9-1.1) Activated Partial Thromboplast Time 29.9 SECONDS (21.0-31.0) Partial Thromboplastin Ratio 1.2 Estimated Average Glucose 126 mg/dl Hemoglobin A1c 6.0 % (4.5-5.6) Hemoglobin A1c Pathologist Comment Chemistry Specimen Hemolysis Bedside Prothrombin Time INR 1.0 (0.9-1.1) White Blood Count 5.77 K/uL (4.8-10.8) Red Blood Count 3.92 M/uL (4.2-5.4) Hemoglobin 11.2 g/dL (12.0-16.0) Hematocrit 33.3 % (37-47) Mean Corpuscular Volume 84.9 fL (80-100) Mean Corpuscular Hemoglobin 28.6 pg (25-34) Mean Corpuscular Hemoglobin Concent 33.6 g/dl (32-36) Platelet Count 265 K/uL (130-400) Mean Platelet Volume 9.6 fL (7.4-10.4) Neutrophils (%) (Auto) 61.9 % Lymphocytes (%) (Auto) 30.3 % Monocytes (%) (Auto) 5.9 % Eosinophils (%) (Auto) 1.6 % Basophils (%) (Auto) 0.3 % Neutrophils # (Auto) 3.57 K/uL (1.4-6.5) Lymphocytes # (Auto) 1.75 K/uL (1.2-3.4) Monocytes # (Auto) 0.34 K/uL (0.11-0.59) Eosinophils # (Auto) 0.09 K/uL (0-0.5) Basophils # (Auto) 0.02 K/uL (0-0.2) RDW Standard Deviation 45.2 fL (36.4-46.3) RDW Coefficient of Variation 14.5 % (11.5-14.5) Immature Granulocyte % (Auto) 0.0 % Immature Granulocyte # (Auto) 0.00 K/uL (0.00-0.02) Hepatitis C Antibody Screen NEG (NEG) Anion Gap 8.0 mmol/L (3-11) Est Creatinine Clear Calc Drug Dose 50.0 ml/min Estimated GFR () 59.3 Estimated GFR (Non- 51.2 BUN/Creatinine Ratio 26.0 (10-20) Calcium Level 9.1 mg/dl (8.5-10.1) Triglycerides Level 101 mg/dl (0-150) Cholesterol Level 175 mg/dl (0-200) HDL Cholesterol 62 mg/dl LDL Cholesterol, Calculated 93 mg/dl VLDL Cholesterol, Calculated 20 mg/dl Cholesterol/HDL Ratio 2.8 Test 08/31/16 07:05 08/31/16 07:38 08/31/16 09:06 Urine Opiates Screen NEG (NEG) Urine Methadone, Qualitative NEG (NEG) Urine Barbiturates NEG (NEG) Urine Phencyclidine (PCP) Level NEG (NEG) Ur Amphetamine/Methamphetamine NEG (NEG) MDMA (Ecstasy) Screen NEG (NEG) Urine Benzodiazepines Screen NEG (NEG) Urine Cocaine Metabolite NEG (NEG) Urine Marijuana (THC) NEG (NEG) Bedside Glucose 70 mg/dl (70-90) Impression 1. History of new onset left-sided weakness with some sensory deficits earlier. I suspect a small CVA. Symptoms are similar to her previous event in March 2016 which was a TIA. She is on Plavix currently. If she did have a stroke, she obviously failed Plavix. Risk factors for stroke include hypertension and dyslipidemia. Her blood pressure is under reasonable control since admission. 2. Chronic cerebral ischemia noted on MRI in March 2016 3. MRI showed "mildly enlarged pituitary gland" of a homogeneous nature in March 2016. She does not have any obvious endocrine issues otherwise. 4. 2 mm aneurysm at the bifurcation of the left middle cerebral artery. This is very small and usually does not create any symptoms and is at a very low bleeding risk Plan 1. MRI of the brain with and without contrast with attention to the pituitary gland We will evaluate for stroke and any progression of her small vessel ischemic disease. We will also evaluate the pituitary gland. 2. I may consider an MRI of the cervical spine because of her neck pain but I' ll hold on this until after the other tests 3. I would not repeat MR angiography of the head or neck as we just did this in the fall. If we want to look at the aneurysm or vessels in a different way, I would suggest CT angiography of the head and neck, assuming her renal status is adequate. 4. Continue Plavix for now. I may consider other treatment options depending on her clinical course and the above test results 5. Physical occupational therapy consults. Increase activity as able. 6. When she is stable enough for discharge in the future, she will follow-up with Dr. Mak as an outpatient. I spoke with Dr. Lion regarding his case including treatment options and differential diagnosis.
[2016-08-31] MEDS ORDERED: OPTIRAY 320 IV PRN (10:00)
--- NOTE | 2016-08-31 11:58 | DIAGNOSTIC IMAGING REPORT ---
CT NECK ANGIO WITH CONTRAST CLINICAL HISTORY: Stroke. Left-sided weakness. COMPARISON STUDY: No previous studies for comparison. TECHNIQUE: CT angiography was performed from the aortic arch to the skull base. MIP imaging was performed. The patient was scanned in a dynamic helical fashion during intravenous administration of 119 cc of Optiray 320. CT DOSE: 512.89 mGy.cm Technique: CT angiogram of the carotid and vertebral arteries was obtained using intravenous contrast and 3-D reconstruction. NASCET criteria was utilized. MIP imaging was performed. Findings: The right carotid revealed no evidence of aneurysm and no evidence of dissection. There is no evidence of hemodynamic significant stenosis. The left carotid revealed no evidence of hemodynamic significant stenosis. There is no evidence of aneurysm. There is no evidence of dissection. There is no evidence of hemodynamically significant vertebral stenosis. There is no evidence of vertebral dissection. IMPRESSION: No evidence of hemodynamically significant carotid or vertebral artery stenosis. No evidence of dissection. Electronically signed by: Chad Joel M.D. 08/31/2016 11:57 AM Dictated Date/Time: 08/31/2016 11:53 AM
--- NOTE | 2016-08-31 12:23 | DIAGNOSTIC IMAGING REPORT ---
CT HEAD ANGIO WITH CONTRAST CLINICAL HISTORY: Stroke. Left-sided weakness. TECHNIQUE: CT angiography of the head was performed in a dynamic helical fashion during intravenous administration of 119 cc of Optiray 320. MIP imaging was performed CT DOSE: COMPARISON STUDY: Noncontrast head CT dated 08/30/2016 FINDINGS: There are no lesion suspicious for aneurysm. There are no major intracranial branch occlusions. The dural venous sinuses appear patent. IMPRESSION: Normal study. Electronically signed by: Chad Joel M.D. 08/31/2016 12:22 PM Dictated Date/Time: 08/31/2016 12:19 PM
--- NOTE | 2016-08-31 12:41 | ECHOCARDIOGRAM REPORT ---
*NOTICE TO RECEIVING [employer]Y This information is strictly Confidential and protected under [place] law. [place] law prohibits you from making any further disclosure of this information unless further disclosure is expressly permitted by the written consent of the person to whom it pertains or is authorized by law. A general authorization for the release of medical or other information is not sufficient for this purpose. Hospital accepts no responsibility if the information is made available to any other person, INCLUDING THE PATIENT. Interpretation Summary * Name: CALISTA KITCHEN Study Date: 08/31/2016 10:42 AM BP: 147/78 mmHg * Patient Location: [facility]\S\N287\S\1 HR: 66 * : 1945 (M/d/yyyy) Gender: Female Height: 62 in * Age: 71 yrs Ethnicity: [place] Weight: 196 lb * Ordering Physician: Sallie Loco * Referring Physician: Self, Referred * Performed By: Jane Mares [facility] * * Reason For Study: TIA * BSA: 1.9 m2 * -- Conclusions -- * Left ventricular systolic function is normal. * Grade I diastolic dysfunction, (abnormal relaxation pattern). * Injection of contrast documented no interatrial shunt. * There is mild mitral regurgitation. * Right ventricular systolic pressure is elevated at 30-40mmHg. Procedure Details * A complete two-dimensional transthoracic echocardiogram was performed (2D, M-mode, Doppler and color flow Doppler). * A saline contrast injection was performed to assess for cardiac shunting. * The injection was performed through an intravenous line in the left arm. * The attending nurse who injected the saline contrast was CHATO POWERS CPL, RN. * A total of 20 cc of agitated saline was given. Left Ventricle * The left ventricle is normal in size. * The basal septum is thickened and angulated consistent with sigmoid septum. * Ejection Fraction = 50-55%. * Left ventricular systolic function is normal. * Grade I diastolic dysfunction, (abnormal relaxation pattern). Right Ventricle * The right ventricle is normal in size and function. Atria * The left atrial size is normal. * Right atrial size is normal. * Injection of contrast documented no interatrial shunt. Mitral Valve * The mitral valve anatomy is normal. * There is mild mitral regurgitation. Tricuspid Valve * The tricuspid valve is not well visualized, but is grossly normal. * There is trace tricuspid regurgitation. * Right ventricular systolic pressure is elevated at 30-40mmHg. Aortic Valve * The aortic valve is normal in structure and function. * No hemodynamically significant valvular aortic stenosis. * Trace aortic regurgitation. Pulmonic Valve * The pulmonic valve leaflets are thin and pliable; valve motion is normal. Great Vessels * Mild aortic root dilatation. Pericardium/Pleural * There is no pericardial effusion. MMode 2D Measurements and Calculations IVSd 1.4 cm IVSs 1.6 cm LVIDd 4.3 cm LVIDs 3.0 cm LVPWd 1.1 cm LVPWs 1.5 cm IVS/LVPW 1.3 FS 30.0 % EDV(Teich) 82.3 ml ESV(Teich) 34.9 ml EF(Teich) 57.6 % EDV(cubed) 78.6 ml ESV(cubed) 26.9 ml EF(cubed) 65.8 % % IVS thick 14.4 % % LVPW thick 36.8 % LV mass(C)d 197.7 grams LV mass(C)dI 104.3 grams/m\S\2 LV mass(C)s 169.8 grams LV mass(C)sI 89.6 grams/m\S\2 SV(Teich) 47.4 ml SI(Teich) 25.0 ml/m\S\2 SV(cubed) 51.7 ml SI(cubed) 27.3 ml/m\S\2 Ao root diam 4.1 cm Ao root area 13.3 cm\S\2 ACS 2.2 cm LA dimension 3.3 cm LA/Ao 0.80 LVOT diam 2.0 cm LVOT area 3.2 cm\S\2 LVAd ap4 37.5 cm\S\2 LVLd ap4 7.9 cm EDV(MOD-sp4) 145.1 ml EDV(sp4-el) 150.9 ml LVAs ap4 24.5 cm\S\2 LVLs ap4 7.0 cm ESV(MOD-sp4) 72.7 ml ESV(sp4-el) 73.4 ml EF(MOD-sp4) 49.9 % EF(sp4-el) 51.4 % LVAd ap2 37.0 cm\S\2 LVLd ap2 8.4 cm EDV(MOD-sp2) 133.2 ml EDV(sp2-el) 138.4 ml LVAs ap2 23.5 cm\S\2 LVLs ap2 6.9 cm ESV(MOD-sp2) 67.2 ml ESV(sp2-el) 68.5 ml EF(MOD-sp2) 49.5 % EF(sp2-el) 50.5 % LVLd %diff 5.4 % EDV(MOD-bp) 143.5 ml LVLs %diff -1.66 % ESV(MOD-bp) 69.8 ml EF(MOD-bp) 51.4 % SV(MOD-sp4) 72.4 ml SI(MOD-sp4) 38.2 ml/m\S\2 SV(MOD-sp2) 66.0 ml SI(MOD-sp2) 34.8 ml/m\S\2 SV(MOD-bp) 73.8 ml SI(MOD-bp) 38.9 ml/m\S\2 SV(sp4-el) 77.5 ml SI(sp4-el) 40.9 ml/m\S\2 SV(sp2-el) 69.9 ml SI(sp2-el) 36.9 ml/m\S\2 Doppler Measurements and Calculations MV E max jose 64.7 cm/sec MV A max jose 77.6 cm/sec MV E/A 0.83 MV P1/2t max jose 71.7 cm/sec MV P1/2t 80.9 msec MVA(P1/2t) 2.7 cm\S\2 MV dec slope 259.8 cm/sec\S\2 MV dec time 0.29 sec Ao V2 max 96.5 cm/sec Ao max PG 3.7 mmHg Ao max PG (full) 0.79 mmHg DAMON(V,A) 2.9 cm\S\2 DAMON(V,D) 2.9 cm\S\2 LV V1 max PG 2.9 mmHg LV V1 max 85.7 cm/sec MR max jose 459.1 cm/sec MR max PG 84.3 mmHg PA V2 max 73.0 cm/sec PA max PG 2.1 mmHg PI max jose 158.9 cm/sec PI max PG 10.1 mmHg PI dec slope 146.9 cm/sec\S\2 PI P1/2t 316.7 msec TR max jose 256.6 cm/sec
[2016-08-31] MEDS ORDERED: GADAVIST IV PRN (13:15)
--- NOTE | 2016-08-31 13:18 | DIAGNOSTIC IMAGING REPORT ---
MRI OF THE BRAIN WITHOUT AND WITH IV CONTRAST CLINICAL HISTORY: Left leg and arm paresthesias. Cerebrovascular accident. COMPARISON STUDY: MRI the brain March 13, 2016, head CT August 30, 2016 and CTA of the head August 31, 2016. TECHNIQUE: Utilizing a 1.5 Masha magnet and dedicated coil, multiplanar, multiecho imaging of the brain was performed pre and postcontrast administration. IV administration of 9 mL of Gadavist contrast was uneventful. FINDINGS: There are no areas of restricted diffusion. No acute intracranial hemorrhage, midline shift or mass effect is present. Ventricular system is normal. Basilar cisterns are patent. There are no extra axial collections. Flow-voids for the major intracranial vessels are present. No intracranial masses or pathologic enhancement is present. Numerous small white matter T2 hyperintense foci likely reflect small vessel disease. Mild enlargement of the pituitary gland is unchanged since MRI of March 13, 2016. The pituitary measures 8 mm in craniocaudal extent. No lesion is identified on this nondedicated exam. Calvarial signal is maintained. Orbits are unremarkable. IMPRESSION: 1. No acute intracranial findings. 2. White matter T2 hyperintense foci which likely reflect small vessel disease. 3. No change in mild enlargement of the pituitary gland since exam of March 14, 2016. Electronically signed by: Shai Rider M.D. 08/31/2016 1:16 PM Dictated Date/Time: 08/31/2016 1:09 PM
--- NOTE | 2016-08-31 18:03 | Hospitalist Progress Note ---
Hospitalist Progress Note Date of Service Aug 31, 2016. Subjective Pt evaluation today including: conversation w/ patient, physical exam, chart review, review of studies ENT: No dental problems, No hearing loss, No nasal symptoms, No problem reported, No see HPI, No sore throat, No tinnitus, No trouble swallowing, No unusual epistaxis Respiratory: No cough, No dyspnea at rest, No dyspnea on exertion, No hemoptysis, No problem reported, No see HPI, No shortness of breath, No sputum, No wheezing Neurologic: + numbness/tingling Medications Medications (Trade) Dose Ordered Sig/Laz Route Start Time Stop Time Status Last Admin Dose Admin Ketorolac Tromethamine (Toradol Inj) 15 mg NOW STAT IV 08/30/16 21:00 08/30/16 21:01 DC 08/30/16 21:18 15 MG Ondansetron HCl (Zofran Inj) 4 mg NOW STAT IV 08/30/16 21:00 08/30/16 21:01 DC 08/30/16 21:17 4 MG Enoxaparin Sodium (Lovenox Inj) 40 mg Q24H SC 08/31/16 06:00 09/30/16 05:59 08/31/16 05:39 40 MG Atorvastatin Calcium (Lipitor Tab) 80 mg QAM PO 08/31/16 09:00 09/30/16 08:59 08/31/16 08:30 80 MG Clopidogrel Bisulfate (plAVix TAB) 75 mg QAM PO 08/31/16 09:00 09/30/16 08:59 08/31/16 08:29 75 MG Hydrochlorothiazide (Hydrochlorothiazide Tab) 25 mg QAM PO 08/31/16 09:00 09/30/16 08:59 08/31/16 08:29 25 MG Lisinopril (Zestril Tab) 40 mg QAM PO 08/31/16 09:00 09/30/16 08:59 08/31/16 08:30 40 MG Metoprolol Tartrate (Lopressor Tab) 50 mg BID PO 08/31/16 09:00 09/30/16 08:59 08/31/16 08:30 50 MG Pneumococcal Polysaccharide Vaccine (Pneumovax-23 Inj) 25 mcg ONCE ONCE IM. 08/31/16 08:00 08/31/16 08:01 DC 08/31/16 12:04 25 MCG Objective Vital Signs Date Time Temp Pulse Resp B/P Pulse Ox O2 Delivery O2 Flow Rate FiO2 08/31/16 14:46 37.0 83 20 117/76 95 08/31/16 12:12 Room Air 08/31/16 08:00 Room Air 08/31/16 07:45 36.5 69 18 135/88 93 Room Air 08/31/16 05:39 63 147/78 08/31/16 04:09 36.5 65 18 166/89 96 Room Air 08/31/16 04:00 Room Air 08/31/16 01:47 36.6 62 20 134/78 95 Room Air 08/31/16 00:55 36.5 73 20 151/105 95 Room Air 08/31/16 00:38 36.5 20 151/105 Room Air 08/31/16 00:25 77 16 136/81 97 08/30/16 23:24 73 20 114/71 97 Room Air 08/30/16 22:05 76 19 08/30/16 21:35 69 19 94 08/30/16 21:30 143/94 08/30/16 21:05 66 19 99 08/30/16 21:00 154/88 08/30/16 20:48 67 16 97 08/30/16 20:40 63 08/30/16 20:30 143/90 08/30/16 20:24 73 18 149/77 98 Room Air 08/30/16 20:22 149/77 08/30/16 20:00 74 18 128/81 96 Room Air 08/30/16 18:05 36.5 77 18 132/82 96 Room Air Physical Exam General Appearance: WD/WN, no apparent distress Eyes: normal inspection, PERRL, EOMI ENT: normal ENT inspection, hearing grossly normal, TMs normal Neck: supple, no adenopathy, thyroid normal Respiratory/Chest: chest non-tender, lungs clear, normal breath sounds Cardiovascular: regular rate, rhythm, no edema, no gallop Abdomen: normal bowel sounds, non tender, soft, no organomegaly Extremities: normal range of motion, non-tender, normal inspection Neurologic/Psychiatric: plastics nurse II-XII nml as tested, no motor/sensory deficits, alert Skin: normal color Laboratory Results Last 24 Hours Test 08/30/16 20:00 08/30/16 20:06 08/31/16 03:55 08/31/16 05:33 White Blood Count 5.95 K/uL 5.77 K/uL Red Blood Count 4.00 M/uL 3.92 M/uL Hemoglobin 11.4 g/dL 11.2 g/dL Hematocrit 34.0 % 33.3 % Mean Corpuscular Volume 85.0 fL 84.9 fL Mean Corpuscular Hemoglobin 28.5 pg 28.6 pg Mean Corpuscular Hemoglobin Concent 33.5 g/dl 33.6 g/dl Platelet Count 280 K/uL 265 K/uL Mean Platelet Volume 9.5 fL 9.6 fL Neutrophils (%) (Auto) 58.4 % 61.9 % Lymphocytes (%) (Auto) 33.3 % 30.3 % Monocytes (%) (Auto) 6.7 % 5.9 % Eosinophils (%) (Auto) 1.2 % 1.6 % Basophils (%) (Auto) 0.2 % 0.3 % Neutrophils # (Auto) 3.48 K/uL 3.57 K/uL Lymphocytes # (Auto) 1.98 K/uL 1.75 K/uL Monocytes # (Auto) 0.40 K/uL 0.34 K/uL Eosinophils # (Auto) 0.07 K/uL 0.09 K/uL Basophils # (Auto) 0.01 K/uL 0.02 K/uL RDW Standard Deviation 45.1 fL 45.2 fL RDW Coefficient of Variation 14.3 % 14.5 % Immature Granulocyte % (Auto) 0.2 % 0.0 % Immature Granulocyte # (Auto) 0.01 K/uL 0.00 K/uL Prothrombin Time 10.5 SECONDS Prothromb Time International Ratio 1.0 Activated Partial Thromboplast Time 29.9 SECONDS Partial Thromboplastin Ratio 1.2 Sodium Level 142 mmol/L Potassium Level 4.2 mmol/L Chloride Level 105 mmol/L Carbon Dioxide Level 30 mmol/L Anion Gap 7.0 mmol/L Blood Urea Nitrogen 23 mg/dl Creatinine 0.95 mg/dl Est Creatinine Clear Calc Drug Dose 57.9 ml/min Estimated GFR () 70.8 Estimated GFR (Non- 61.1 BUN/Creatinine Ratio 24.1 Bedside Glucose 80 mg/dl Random Glucose 93 mg/dl Estimated Average Glucose 126 mg/dl Hemoglobin A1c 6.0 % Hemoglobin A1c Pathologist Comment Calcium Level 9.0 mg/dl Troponin I < 0.015 ng/ml < 0.015 ng/ml Chemistry Specimen Hemolysis Bedside Prothrombin Time INR 1.0 Hepatitis C Antibody Screen NEG Test 08/31/16 05:53 08/31/16 07:05 08/31/16 07:38 08/31/16 09:06 Sodium Level 143 mmol/L Potassium Level 4.2 mmol/L Chloride Level 107 mmol/L Carbon Dioxide Level 28 mmol/L Anion Gap 8.0 mmol/L Blood Urea Nitrogen 29 mg/dl Creatinine 1.10 mg/dl Est Creatinine Clear Calc Drug Dose 50.0 ml/min Estimated GFR () 59.3 Estimated GFR (Non- 51.2 BUN/Creatinine Ratio 26.0 Random Glucose 79 mg/dl Calcium Level 9.1 mg/dl Troponin I < 0.015 ng/ml < 0.015 ng/ml Triglycerides Level 101 mg/dl Cholesterol Level 175 mg/dl HDL Cholesterol 62 mg/dl LDL Cholesterol, Calculated 93 mg/dl VLDL Cholesterol, Calculated 20 mg/dl Cholesterol/HDL Ratio 2.8 Urine Opiates Screen NEG Urine Methadone, Qualitative NEG Urine Barbiturates NEG Urine Phencyclidine (PCP) Level NEG Ur Amphetamine/Methamphetamine NEG MDMA (Ecstasy) Screen NEG Urine Benzodiazepines Screen NEG Urine Cocaine Metabolite NEG Urine Marijuana (THC) NEG Bedside Glucose 70 mg/dl Test 08/31/16 11:43 08/31/16 13:25 08/31/16 16:10 Bedside Glucose 75 mg/dl 92 mg/dl Troponin I < 0.015 ng/ml Diagnostic Results 08/31/16 05:33 Red Blood Count 3.92, Mean Corpuscular Volume 84.9, Mean Corpuscular Hemoglobin 28.6, Mean Corpuscular Hemoglobin Concent 33.6, Mean Platelet Volume 9.6, Neutrophils (%) (Auto) 61.9, Lymphocytes (%) (Auto) 30.3, Monocytes (%) (Auto) 5.9, Eosinophils (%) (Auto) 1.6, Basophils (%) (Auto) 0.3, Neutrophils # (Auto) 3.57, Lymphocytes # (Auto) 1.75, Monocytes # (Auto) 0.34, Eosinophils # (Auto) 0.09, Basophils # (Auto) 0.02 08/31/16 05:53 Test 08/30/16 20:00 08/30/16 20:06 08/31/16 05:33 08/31/16 05:53 Prothrombin Time 10.5 SECONDS (9.0-12.0) Prothromb Time International Ratio 1.0 (0.9-1.1) Activated Partial Thromboplast Time 29.9 SECONDS (21.0-31.0) Partial Thromboplastin Ratio 1.2 Estimated Average Glucose 126 mg/dl Hemoglobin A1c 6.0 % (4.5-5.6) Hemoglobin A1c Pathologist Comment Chemistry Specimen Hemolysis Bedside Prothrombin Time INR 1.0 (0.9-1.1) White Blood Count 5.77 K/uL (4.8-10.8) Red Blood Count 3.92 M/uL (4.2-5.4) Hemoglobin 11.2 g/dL (12.0-16.0) Hematocrit 33.3 % (37-47) Mean Corpuscular Volume 84.9 fL (80-100) Mean Corpuscular Hemoglobin 28.6 pg (25-34) Mean Corpuscular Hemoglobin Concent 33.6 g/dl (32-36) Platelet Count 265 K/uL (130-400) Mean Platelet Volume 9.6 fL (7.4-10.4) Neutrophils (%) (Auto) 61.9 % Lymphocytes (%) (Auto) 30.3 % Monocytes (%) (Auto) 5.9 % Eosinophils (%) (Auto) 1.6 % Basophils (%) (Auto) 0.3 % Neutrophils # (Auto) 3.57 K/uL (1.4-6.5) Lymphocytes # (Auto) 1.75 K/uL (1.2-3.4) Monocytes # (Auto) 0.34 K/uL (0.11-0.59) Eosinophils # (Auto) 0.09 K/uL (0-0.5) Basophils # (Auto) 0.02 K/uL (0-0.2) RDW Standard Deviation 45.2 fL (36.4-46.3) RDW Coefficient of Variation 14.5 % (11.5-14.5) Immature Granulocyte % (Auto) 0.0 % Immature Granulocyte # (Auto) 0.00 K/uL (0.00-0.02) Hepatitis C Antibody Screen NEG (NEG) Anion Gap 8.0 mmol/L (3-11) Est Creatinine Clear Calc Drug Dose 50.0 ml/min Estimated GFR () 59.3 Estimated GFR (Non- 51.2 BUN/Creatinine Ratio 26.0 (10-20) Calcium Level 9.1 mg/dl (8.5-10.1) Triglycerides Level 101 mg/dl (0-150) Cholesterol Level 175 mg/dl (0-200) HDL Cholesterol 62 mg/dl LDL Cholesterol, Calculated 93 mg/dl VLDL Cholesterol, Calculated 20 mg/dl Cholesterol/HDL Ratio 2.8 Test 08/31/16 07:05 08/31/16 13:25 08/31/16 16:10 Urine Opiates Screen NEG (NEG) Urine Methadone, Qualitative NEG (NEG) Urine Barbiturates NEG (NEG) Urine Phencyclidine (PCP) Level NEG (NEG) Ur Amphetamine/Methamphetamine NEG (NEG) MDMA (Ecstasy) Screen NEG (NEG) Urine Benzodiazepines Screen NEG (NEG) Urine Cocaine Metabolite NEG (NEG) Urine Marijuana (THC) NEG (NEG) Troponin I < 0.015 ng/ml (0-0.045) Bedside Glucose 92 mg/dl (70-90) Assessment and Plan Left sided Paraesthesia and dizziness: CT head is negative Patient has already received circulatory imaging during previous admission that was largely unrevealing except for 2 mm L MCA aneurysm Will f/u on results of MRI brain. CT angio of head and neck Continue Plavix, statin Appreciate Neurology input Echo HTN: continue Lisinopril, metoprolol Normocytic, normochromic anemia- stable f/u outpatient
[2016-09-01] VITALS (7 sets, daily range): BP systolic 95–135; BP diastolic 61–86; PULSE 72–87; TEMP 36.8–37.4; O2SAT 94–97
[2016-09-01] MEDS: ENOXAPARIN 40 MG/0.4 ML SYR SC SCH (06:13)
[2016-09-01 06:56] LABS: BUN/CREATININE RATIO 25.3 (10-20); CALCIUM 8.9 mg/dl (8.5-10.1); CREATININE 0.96 mg/dl (0.60-1.20); POTASSIUM 3.8 mmol/L (3.5-5.1)
[2016-09-01 07:01] LABS: BASO % 0.1 %; BASO ABS # 0.01 K/uL (0-0.2); COMPLETE YES; EOS % 1.9 %; HEMATOCRIT 33.7 % (37-47); IG% 0.1 %; LYMPH % 23.4 %; LYMPH ABS # 1.64 K/uL (1.2-3.4); MEAN CELL VOLUME 83.8 fL (80-100); MEAN CORPUSCULAR HEMOGLOBIN 28.9 pg (25-34); MEAN CORPUSCULAR HGB CONC 34.4 g/dl (32-36); MEAN PLATELET VOLUME 9.3 fL (7.4-10.4); MONO % 7.6 %; NEUT % 66.9 %; PLATELET COUNT 243 K/uL (130-400); RED BLOOD COUNT 4.02 M/uL (4.2-5.4); WHITE BLOOD COUNT 7.01 K/uL (4.8-10.8)
--- NOTE | 2016-09-01 07:30 | Progress Note ---
Subjective Date of Service: Sep 01, 2016. Subjective Pt evaluation today including: conversation w/ patient, physical exam, chart review Voiding: no voiding problems Problem List Medical Problems: (1) CVA (cerebral vascular accident) Status: Acute (2) Fracture of proximal end of left fibula Status: Acute (3) Headache Status: Acute (4) Left leg paresthesias Status: Acute (5) Paresthesia of left arm Status: Acute Review of Systems Respiratory: No cough, No dyspnea at rest, No dyspnea on exertion, No hemoptysis, No problem reported, No see HPI, No shortness of breath, No sputum, No wheezing Cardiac: No PND, No chest pain, No claudication, No edema, No orthopnea, No palpitations, No problem reported, No see HPI Medications Medications (Trade) Dose Ordered Sig/Laz Route Start Time Stop Time Status Last Admin Dose Admin Atorvastatin Calcium (Lipitor Tab) 80 mg QAM PO 08/31/16 09:00 09/30/16 08:59 08/31/16 08:30 80 MG Clopidogrel Bisulfate (plAVix TAB) 75 mg QAM PO 08/31/16 09:00 09/30/16 08:59 08/31/16 08:29 75 MG Hydrochlorothiazide (Hydrochlorothiazide Tab) 25 mg QAM PO 08/31/16 09:00 09/30/16 08:59 08/31/16 08:29 25 MG Lisinopril (Zestril Tab) 40 mg QAM PO 08/31/16 09:00 09/30/16 08:59 08/31/16 08:30 40 MG Metoprolol Tartrate (Lopressor Tab) 50 mg BID PO 08/31/16 09:00 09/30/16 08:59 08/31/16 19:27 50 MG Pneumococcal Polysaccharide Vaccine (Pneumovax-23 Inj) 25 mcg ONCE ONCE IM. 08/31/16 08:00 08/31/16 08:01 DC 08/31/16 12:04 25 MCG Objective Vital Signs Date Time Temp Pulse Resp B/P Pulse Ox O2 Delivery O2 Flow Rate FiO2 09/01/16 04:00 Room Air 09/01/16 03:10 37.1 74 18 135/86 97 Room Air 09/01/16 00:01 Room Air 08/31/16 23:10 36.8 63 18 135/85 97 Room Air 08/31/16 20:00 Room Air 08/31/16 19:59 37.1 74 16 129/84 95 Room Air 08/31/16 19:27 79 149/89 08/31/16 16:00 Room Air 08/31/16 14:46 37.0 83 20 117/76 95 08/31/16 12:12 Room Air 08/31/16 08:00 Room Air 08/31/16 07:45 36.5 69 18 135/88 93 Room Air Laboratory Results Last 24 Hours Test 08/31/16 07:38 08/31/16 09:06 08/31/16 11:43 08/31/16 13:25 Bedside Glucose 70 mg/dl 75 mg/dl Troponin I < 0.015 ng/ml < 0.015 ng/ml Test 08/31/16 16:10 08/31/16 20:13 09/01/16 05:42 Bedside Glucose 92 mg/dl 102 mg/dl White Blood Count 7.01 K/uL Red Blood Count 4.02 M/uL Hemoglobin 11.6 g/dL Hematocrit 33.7 % Mean Corpuscular Volume 83.8 fL Mean Corpuscular Hemoglobin 28.9 pg Mean Corpuscular Hemoglobin Concent 34.4 g/dl Platelet Count 243 K/uL Mean Platelet Volume 9.3 fL Neutrophils (%) (Auto) 66.9 % Lymphocytes (%) (Auto) 23.4 % Monocytes (%) (Auto) 7.6 % Eosinophils (%) (Auto) 1.9 % Basophils (%) (Auto) 0.1 % Neutrophils # (Auto) 4.69 K/uL Lymphocytes # (Auto) 1.64 K/uL Monocytes # (Auto) 0.53 K/uL Eosinophils # (Auto) 0.13 K/uL Basophils # (Auto) 0.01 K/uL RDW Standard Deviation 43.9 fL RDW Coefficient of Variation 14.3 % Immature Granulocyte % (Auto) 0.1 % Immature Granulocyte # (Auto) 0.01 K/uL Sodium Level 140 mmol/L Potassium Level 3.8 mmol/L Chloride Level 104 mmol/L Carbon Dioxide Level 30 mmol/L Anion Gap 6.0 mmol/L Blood Urea Nitrogen 24 mg/dl Creatinine 0.96 mg/dl Est Creatinine Clear Calc Drug Dose 57.0 ml/min Estimated GFR () 69.9 Estimated GFR (Non- 60.3 BUN/Creatinine Ratio 25.3 Random Glucose 83 mg/dl Calcium Level 8.9 mg/dl [~ rep ct add3]] MRI OF THE BRAIN WITHOUT AND WITH IV CONTRAST CLINICAL HISTORY: Left leg and arm paresthesias. Cerebrovascular accident. COMPARISON STUDY: MRI the brain March 13, 2016, head CT August 30, 2016 and CTA of the head August 31, 2016. TECHNIQUE: Utilizing a 1.5 Masha magnet and dedicated coil, multiplanar, multiecho imaging of the brain was performed pre and postcontrast administration. IV administration of 9 mL of Gadavist contrast was uneventful. FINDINGS: There are no areas of restricted diffusion. No acute intracranial hemorrhage, midline shift or mass effect is present. Ventricular system is normal. Basilar cisterns are patent. There are no extra axial collections. Flow-voids for the major intracranial vessels are present. No intracranial masses or pathologic enhancement is present. Numerous small white matter T2 hyperintense foci likely reflect small vessel disease. Mild enlargement of the pituitary gland is unchanged since MRI of March 13, 2016. The pituitary measures 8 mm in craniocaudal extent. No lesion is identified on this nondedicated exam. Calvarial signal is maintained. Orbits are unremarkable. IMPRESSION: 1. No acute intracranial findings. 2. White matter T2 hyperintense foci which likely reflect small vessel disease. 3. No change in mild enlargement of the pituitary gland since exam of March 14, 2016. Electronically signed by: Shai Rider M.D. 08/31/2016 1:16 PM Dictated Date/Time: 08/31/2016 1:[address] HEAD ANGIO WITH CONTRAST CLINICAL HISTORY: Stroke. Left-sided weakness. TECHNIQUE: CT angiography of the head was performed in a dynamic helical fashion during intravenous administration of 119 cc of Optiray 320. MIP imaging was performed CT DOSE: COMPARISON STUDY: Noncontrast head CT dated 08/30/2016 FINDINGS: There are no lesion suspicious for aneurysm. There are no major intracranial branch occlusions. The dural venous sinuses appear patent. IMPRESSION: Normal study. Electronically signed by: Chad Joel M.D. 08/31/2016 12:22 PM * Name: CALISTA KITCHEN Study Date: 08/31/2016 10:42 AM BP: 147/78 mmHg * Patient Location: [facility]\S\N287\S\1 HR: 66 * : 1945 (M/d/yyyy) Gender: Female Height: 62 in * Age: 71 yrs Ethnicity: [place] Weight: 196 lb * Ordering Physician: Sallie Loco * Referring Physician: Self, Referred * Performed By: Jane Mares [facility] * * Reason For Study: TIA * BSA: 1.9 m2 * -- Conclusions -- * Left ventricular systolic function is normal. * Grade I diastolic dysfunction, (abnormal relaxation pattern). * Injection of contrast documented no interatrial shunt. * There is mild mitral regurgitation. * Right ventricular systolic pressure is elevated at 30-40mmHg. Procedure Details * A complete two-dimensional transthoracic echocardiogram was performed (2D, M-mode, Doppler and color flow Doppler). * A saline contrast injection was performed to assess for cardiac shunting. * The injection was performed through an intravenous line in the left arm. * The attending nurse who injected the saline contrast was CHATO POWERS [facility], RN. * A total of 20 cc of agitated saline was given. Left Ventricle * The left ventricle is normal in size. * The basal septum is thickened and angulated consistent with sigmoid septum. * Ejection Fraction = 50-55%. * Left ventricular systolic function is normal. * Grade I diastolic dysfunction, (abnormal relaxation pattern). Right Ventricle * The right ventricle is normal in size and function. Atria * The left atrial size is normal. * Right atrial size is normal. * Injection of contrast documented no interatrial shunt. Mitral Valve * The mitral valve anatomy is normal. * There is mild mitral regurgitation. Tricuspid Valve * The tricuspid valve is not well visualized, but is grossly normal. * There is trace tricuspid regurgitation. * Right ventricular systolic pressure is elevated at 30-40mmHg. Aortic Valve * The aortic valve is normal in structure and function. * No hemodynamically significant valvular aortic stenosis. * Trace aortic regurgitation. Pulmonic Valve * The pulmonic valve leaflets are thin and pliable; valve motion is normal. Great Vessels * Mild aortic root dilatation. Pericardium/Pleural * There is no pericardial effusion. Assessment and Plan Left sided Paraesthesia and dizziness: CT head is negative Patient has already received circulatory imaging during previous admission that was largely unrevealing except for 2 mm L MCA aneurysm Results of MRI brai and CT angio of head and neck noted. Continue Plavix, statin Appreciate Neurology input Echo HTN: continue Lisinopril, metoprolol Normocytic, normochromic anemia- stable f/u outpatient
[2016-09-01] MEDS: METOPROLOL TARTRATE 50 MG TAB PO SCH (07:46)
[2016-09-01] MEDS: HYDROCHLOROTHIAZIDE 25 MG TAB PO SCH (07:47)
[2016-09-01] MEDS: LISINOPRIL 20 MG TAB PO SCH (07:47)
[2016-09-01] MEDS: ATORVASTATIN 40 MG TAB PO SCH (07:47)
[2016-09-01] MEDS: CLOPIDOGREL BISULFATE 75 MG TAB PO SCH (07:47)
--- NOTE | 2016-09-01 08:30 | Clinical Documentation Query ---
CLINICAL DOCUMENTATION QUERY Dr. NIELSEN, In your clinical opinion is this patient being managed for: ( ) CVA ( x ) TIA ( ) Other explanation of clinical findings (Please Explain) ( ) Unable to determine (Please Define) ( ) Need to Discuss ( ) Not Agree The medical record reflects the following clinical findings, treatment, and risk factors. Clinical Indicators: Clinical record reflects pt presented with paraesthesia and dizziness. Consult by neurology indicates "I suspect a small CVA" Treatment: brain MRI, neurology consult, continue plavix Risk Factors: age, HTN, hx TIA Please clarify and document your clinical opinion in the progress notes and discharge summary. Terms such as "probable", "suspected", "likely", "questionable", "possible", or "still to be ruled out" are acceptable. IF IN AGREEMENT, YOU MUST DOCUMENT ABOVE DIAGNOSTIC STATEMENT IN DAILY PROGRESS NOTES AND DISCHARGE SUMMARY. This document is not part of the patient's record. Thank You, Esther Moore RN [phone]
--- NOTE | 2016-09-01 08:47 | Neurology Progress Notes ---
Neurology Progress Note Date of Service Sep 01, 2016. Subjective Patient believes she is better today. She has less pain in general although she does have significant pain in her left deltoid where she received an injection. She has no headache. She believes her left side is stronger. She has no numbness or tingling or dizziness. She has no new vision problems or speech problems. Blood pressure is reasonable. Echocardiogram was largely unremarkable. MRI of the brain showed no acute changes. She had some mild to moderate old white matter changes and the pituitary gland, which was mildly enlarged showed no other abnormalities. There was no evidence for tumor. CT angiography of the head was unremarkable and no aneurysm was seen. CT neuropathy of the neck was unremarkable with no significant stenoses. Objective Date Time Temp Pulse Resp B/P Pulse Ox O2 Delivery O2 Flow Rate FiO2 09/01/16 08:00 97 Room Air 09/01/16 07:56 37.1 72 18 120/78 97 Room Air 09/01/16 04:00 Room Air 09/01/16 03:10 37.1 74 18 135/86 97 Room Air 09/01/16 00:01 Room Air 08/31/16 23:10 36.8 63 18 135/85 97 Room Air 08/31/16 20:00 Room Air 08/31/16 19:59 37.1 74 16 129/84 95 Room Air 08/31/16 19:27 79 149/89 08/31/16 16:00 Room Air 08/31/16 14:46 37.0 83 20 117/76 95 08/31/16 12:12 Room Air Last 24 Hours Test 08/31/16 09:06 08/31/16 11:43 08/31/16 13:25 08/31/16 16:10 Troponin I < 0.015 ng/ml < 0.015 ng/ml Bedside Glucose 75 mg/dl 92 mg/dl Test 08/31/16 20:13 09/01/16 05:42 09/01/16 07:46 Bedside Glucose 102 mg/dl 75 mg/dl White Blood Count 7.01 K/uL Red Blood Count 4.02 M/uL Hemoglobin 11.6 g/dL Hematocrit 33.7 % Mean Corpuscular Volume 83.8 fL Mean Corpuscular Hemoglobin 28.9 pg Mean Corpuscular Hemoglobin Concent 34.4 g/dl Platelet Count 243 K/uL Mean Platelet Volume 9.3 fL Neutrophils (%) (Auto) 66.9 % Lymphocytes (%) (Auto) 23.4 % Monocytes (%) (Auto) 7.6 % Eosinophils (%) (Auto) 1.9 % Basophils (%) (Auto) 0.1 % Neutrophils # (Auto) 4.69 K/uL Lymphocytes # (Auto) 1.64 K/uL Monocytes # (Auto) 0.53 K/uL Eosinophils # (Auto) 0.13 K/uL Basophils # (Auto) 0.01 K/uL RDW Standard Deviation 43.9 fL RDW Coefficient of Variation 14.3 % Immature Granulocyte % (Auto) 0.1 % Immature Granulocyte # (Auto) 0.01 K/uL Sodium Level 140 mmol/L Potassium Level 3.8 mmol/L Chloride Level 104 mmol/L Carbon Dioxide Level 30 mmol/L Anion Gap 6.0 mmol/L Blood Urea Nitrogen 24 mg/dl Creatinine 0.96 mg/dl Est Creatinine Clear Calc Drug Dose 57.0 ml/min Estimated GFR () 69.9 Estimated GFR (Non- 60.3 BUN/Creatinine Ratio 25.3 Random Glucose 83 mg/dl Calcium Level 8.9 mg/dl Imaging: MRI OF THE BRAIN WITHOUT AND WITH IV CONTRAST CLINICAL HISTORY: Left leg and arm paresthesias. Cerebrovascular accident. COMPARISON STUDY: MRI the brain March 13, 2016, head CT August 30, 2016 and CTA of the head August 31, 2016. TECHNIQUE: Utilizing a 1.5 Masha magnet and dedicated coil, multiplanar, multiecho imaging of the brain was performed pre and postcontrast administration. IV administration of 9 mL of Gadavist contrast was uneventful. FINDINGS: There are no areas of restricted diffusion. No acute intracranial hemorrhage, midline shift or mass effect is present. Ventricular system is normal. Basilar cisterns are patent. There are no extra axial collections. Flow-voids for the major intracranial vessels are present. No intracranial masses or pathologic enhancement is present. Numerous small white matter T2 hyperintense foci likely reflect small vessel disease. Mild enlargement of the pituitary gland is unchanged since MRI of March 13, 2016. The pituitary measures 8 mm in craniocaudal extent. No lesion is identified on this nondedicated exam. Calvarial signal is maintained. Orbits are unremarkable. IMPRESSION: 1. No acute intracranial findings. 2. White matter T2 hyperintense foci which likely reflect small vessel disease. 3. No change in mild enlargement of the pituitary gland since exam of March 14, 2016. CT HEAD ANGIO WITH CONTRAST CLINICAL HISTORY: Stroke. Left-sided weakness. TECHNIQUE: CT angiography of the head was performed in a dynamic helical fashion during intravenous administration of 119 cc of Optiray 320. MIP imaging was performed CT DOSE: COMPARISON STUDY: Noncontrast head CT dated 08/30/2016 FINDINGS: There are no lesion suspicious for aneurysm. There are no major intracranial branch occlusions. The dural venous sinuses appear patent. IMPRESSION: Normal study. Electronically signed by: Chad Joel M.D. 08/31/2016 12:22 PM Dictated Date/Time: 08/31/2016 12:[address] NECK ANGIO WITH CONTRAST CLINICAL HISTORY: Stroke. Left-sided weakness. COMPARISON STUDY: No previous studies for comparison. TECHNIQUE: CT angiography was performed from the aortic arch to the skull base. MIP imaging was performed. The patient was scanned in a dynamic helical fashion during intravenous administration of 119 cc of Optiray 320. CT DOSE: 512.89 mGy.cm Technique: CT angiogram of the carotid and vertebral arteries was obtained using intravenous contrast and 3-D reconstruction. NASCET criteria was utilized. MIP imaging was performed. Findings: The right carotid revealed no evidence of aneurysm and no evidence of dissection. There is no evidence of hemodynamic significant stenosis. The left carotid revealed no evidence of hemodynamic significant stenosis. There is no evidence of aneurysm. There is no evidence of dissection. There is no evidence of hemodynamically significant vertebral stenosis. There is no evidence of vertebral dissection. IMPRESSION: No evidence of hemodynamically significant carotid or vertebral artery stenosis. No evidence of dissection. Exam: She is awake and alert. There is no speech or mentation difficulties. There is no aphasia or dysarthria. Extraocular eye muscles are intact without nystagmus. There is no facial droop. Tongue is midline. With outstretched arms, there is no drift. There is no resting, postural, or action tremors. Strength is 5/5 diffusely in the right arm and leg. Strength is close to 5/5 in the left upper extremity but she does have a little giveaway weakness in the deltoid due to pain from her injection Strength is 4/5 diffusely in the left lower extremity. Current Inpatient Medications Medications (Trade) Dose Ordered Sig/Laz Route Start Time Stop Time Status Last Admin Dose Admin Miscellaneous Information (Pharmacist Discharge Med Rec Consult) 1 ea UD PRN N/A 08/30/16 23:30 09/29/16 23:29 Enoxaparin Sodium (Lovenox Inj) 40 mg Q24H SC 08/31/16 06:00 09/30/16 05:59 09/01/16 06:13 40 MG Acetaminophen (Tylenol Tab) 650 mg Q4H PRN PO 08/30/16 23:30 09/29/16 23:29 08/31/16 19:27 650 MG Al Hydrox/Mg Hydrox/Simethicone (Maalox Max Susp) 15 ml Q4H PRN PO 08/30/16 23:30 09/29/16 23:29 Magnesium Hydroxide (Milk Of Magnesia Susp) 30 ml Q12H PRN PO 08/30/16 23:30 09/29/16 23:29 Ondansetron HCl (Zofran Inj) 4 mg Q6H PRN IV 08/30/16 23:30 09/29/16 23:29 Nitroglycerin (Nitrostat Tab) 0.4 mg UD PRN SL 08/30/16 23:30 09/29/16 23:29 Polyethylene (Miralax Powder Packet) 17 gm DAILY PRN PO 08/30/16 23:30 09/29/16 23:29 Atorvastatin Calcium (Lipitor Tab) 80 mg QAM PO 08/31/16 09:00 09/30/16 08:59 09/01/16 07:47 80 MG Clopidogrel Bisulfate (plAVix TAB) 75 mg QAM PO 08/31/16 09:00 09/30/16 08:59 09/01/16 07:47 75 MG Hydrochlorothiazide (Hydrochlorothiazide Tab) 25 mg QAM PO 08/31/16 09:00 09/30/16 08:59 09/01/16 07:47 25 MG Lisinopril (Zestril Tab) 40 mg QAM PO 08/31/16 09:00 09/30/16 08:59 09/01/16 07:47 40 MG Metoprolol Tartrate (Lopressor Tab) 50 mg BID PO 08/31/16 09:00 09/30/16 08:59 09/01/16 07:46 50 MG Ioversol (Optiray 320) 125 ml UD PRN IV 08/31/16 10:00 09/04/16 09:59 Gadobutrol (Gadavist) 9 mmol UD PRN IV 08/31/16 13:15 09/04/16 13:14 Impression 1. History of new onset left-sided weakness with some sensory deficits earlier. I suspect a small CVA, even though the MRI does not show an obvious acute stroke. She had this event on Plavix. Risk factors for stroke include hypertension and dyslipidemia. Her blood pressure is under reasonable control since admission. 2. Chronic cerebral ischemia noted on MRI, which I would classify as mild and nonspecific 3. MRI showed "mildly enlarged pituitary gland" of a homogeneous nature in March 2016. MRI yesterday showed a generous sized pituitary but no evidence for heterogeneity or tumor. She does not have any obvious endocrine issues otherwise. 4. 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 CT angiography shows no evidence of aneurysm, therefore, that was likely an artifact by MR angiography Plan 1. Continue Plavix for now. Options would be to add a baby aspirin for the next 2 or 3 months to the Plavix and be on both. An alternative would be to switch her Plavix to Aggrenox twice a day. With her history of headaches I am less inclined to advocate Aggrenox. Therefore, use 81 mg aspirin and Plavix together for now. 2. I might consider an MRI of the cervical spine as an outpatient but I see no indication to do this as an inpatient, at this time 3. Physical occupational therapy consults. Increase activity as able. 6. When she is stable enough for discharge in the future, she will follow-up with Dr. Mak as an outpatient.
--- NOTE | 2016-09-01 12:37 | Discharge Summary ---
Discharge Summary Date of Service Sep 01, 2016. Discharge Summary Admission Date: Aug 30, 2016 at 23:34 Discharge Date: Sep 01, 2016 Discharge Disposition: Home Principal Diagnosis: TIA Problems/Secondary Diagnoses: Hypertension, Benign Procedures: Imaging: MRI OF THE BRAIN WITHOUT AND WITH IV CONTRAST CLINICAL HISTORY: Left leg and arm paresthesias. Cerebrovascular accident. COMPARISON STUDY: MRI the brain March 13, 2016, head CT August 30, 2016 and CTA of the head August 31, 2016. TECHNIQUE: Utilizing a 1.5 Masha magnet and dedicated coil, multiplanar, multiecho imaging of the brain was performed pre and postcontrast administration. IV administration of 9 mL of Gadavist contrast was uneventful. FINDINGS: There are no areas of restricted diffusion. No acute intracranial hemorrhage, midline shift or mass effect is present. Ventricular system is normal. Basilar cisterns are patent. There are no extra axial collections. Flow-voids for the major intracranial vessels are present. No intracranial masses or pathologic enhancement is present. Numerous small white matter T2 hyperintense foci likely reflect small vessel disease. Mild enlargement of the pituitary gland is unchanged since MRI of March 13, 2016. The pituitary measures 8 mm in craniocaudal extent. No lesion is identified on this nondedicated exam. Calvarial signal is maintained. Orbits are unremarkable. IMPRESSION: 1. No acute intracranial findings. 2. White matter T2 hyperintense foci which likely reflect small vessel disease. 3. No change in mild enlargement of the pituitary gland since exam of March 14, 2016. CT HEAD ANGIO WITH CONTRAST CLINICAL HISTORY: Stroke. Left-sided weakness. TECHNIQUE: CT angiography of the head was performed in a dynamic helical fashion during intravenous administration of 119 cc of Optiray 320. MIP imaging was performed CT DOSE: COMPARISON STUDY: Noncontrast head CT dated 08/30/2016 FINDINGS: There are no lesion suspicious for aneurysm. There are no major intracranial branch occlusions. The dural venous sinuses appear patent. IMPRESSION: Normal study. Electronically signed by: Chad Joel M.D. 08/31/2016 12:22 PM Dictated Date/Time: 08/31/2016 12:[address] NECK ANGIO WITH CONTRAST CLINICAL HISTORY: Stroke. Left-sided weakness. COMPARISON STUDY: No previous studies for comparison. TECHNIQUE: CT angiography was performed from the aortic arch to the skull base. MIP imaging was performed. The patient was scanned in a dynamic helical fashion during intravenous administration of 119 cc of Optiray 320. CT DOSE: 512.89 mGy.cm Technique: CT angiogram of the carotid and vertebral arteries was obtained using intravenous contrast and 3-D reconstruction. NASCET criteria was utilized. MIP imaging was performed. Findings: The right carotid revealed no evidence of aneurysm and no evidence of dissection. There is no evidence of hemodynamic significant stenosis. The left carotid revealed no evidence of hemodynamic significant stenosis. There is no evidence of aneurysm. There is no evidence of dissection. There is no evidence of hemodynamically significant vertebral stenosis. There is no evidence of vertebral dissection. Discharge Exam Physical Exam: General Appearance: WD/WN, no apparent distress Eyes: normal inspection, PERRL, EOMI ENT: normal ENT inspection, hearing grossly normal, TMs normal, pharynx normal Neck: supple, no adenopathy, thyroid normal, no JVD Respiratory/Chest: chest non-tender, lungs clear, normal breath sounds, no respiratory distress Cardiovascular: regular rate, rhythm, no edema, no gallop, no JVD, no murmur Abdomen / GI: normal bowel sounds, soft, no organomegaly, no pulsatile mass Extremities: normal inspection, no calf tenderness, normal capillary refill , no pedal edema Neurologic/Psychiatric: manager transfusion II-XII nml as tested, normal mood/affect, normal reflexes, oriented x 3 Skin: normal color Hospital Course Left sided Paraesthesia and dizziness: CT head is negative Patient has already received circulatory imaging during previous admission that was largely unrevealing except for 2 mm L MCA aneurysm Results of MRI brain and CT angio of head and neck noted. Continue Plavix, statin, ASA 81mg daily Appreciate Neurology input Echo HTN: continue Lisinopril, metoprolol Normocytic, normochromic anemia- stable f/u outpatient Total Time Spent: Greater than 30 minutes This includes examination of the patient, discharge planning, medication reconciliation, and communication with other providers. Discharge Instructions Please refer to the electronic Patient Visit Report (Discharge Instructions) for additional information. Follow-Up With neurology in one to two weeks,
[2016-09-01] MEDS ORDERED: ASPEC81 PO (15:01)
--- NOTE | 2016-09-01 15:03 | Discharge Instructions ---
Discharge Instructions Date of Service Sep 01, 2016. Admission Reason for Admission: Left Leg Paresthesias, Parasthesia Of Left Arm Discharge Discharge Diagnosis / Problem: CVA Discharge Goals Goal(s): Learn about illness Activity Recommendations Activity Limitations: resume your previous activity Lifting Limitations: none Exercise/Sports Limitations: none May Resume Sexual Activity: when tolerated Shower/Bathe: no limitations Driving or Machine Use: no limitations . Instructions / Follow-Up Instructions / Follow-Up Risk Factors for Stroke: You can reduce your chances of stroke by working with your medical provider to adopt a healthy lifestyle. Some specific ways to lower your chance of stroke are: * If you are a smoker, now is the time to stop smoking cigarettes * If you are diabetic, improve the control of your blood sugars * Avoid excessive amounts of alcohol * Control high blood pressure * Lose weight if you are overweight * Be sure to lead an active lifestyle * Eat a healthy diet low in salt, cholesterol and fat You should know about other risk factors for stroke that you are unable to control. These include: * Age 55 years or older * Male gender * Certain racial groups: , or / * Family History of Stroke, Mini stroke or Heart Attack * Sickle Cell Disease Follow Up: It is important for you to keep your follow up appointments with your medical provider. Discharge Diet Recommended Diet: AHA Diet (Heart Healthy) Procedures Procedures Performed: MRI brain Pending Studies Studies pending at discharge: no Laboratory Results Hemoglobin A1c Test 08/30/16 20:00 Range/Units Estimated Average Glucose 126 mg/dl Hemoglobin A1c 6.0 H 4.5-5.6 % Lipid Panel Test 08/31/16 05:53 Range/Units Triglycerides Level 101 0-150 mg/dl Cholesterol Level 175 0-200 mg/dl HDL Cholesterol 62 mg/dl Cholesterol/HDL Ratio 2.8 LDL Cholesterol, Calculated 93 mg/dl Medical Emergencies . Who to Call and When: Medical Emergencies: Call 911 immediately if you experience any of the following warning signs and symptoms of Stroke: * Sudden numbness or weakness of the face, arm or leg, especially on one side of the body * Sudden confusion, trouble speaking or understanding * Sudden trouble seeing in one or both eyes * Sudden trouble walking, dizziness, loss of balance or coordination * Sudden severe headache with no cause Do not delay calling 911 if you experience any warning signs or symptoms of a stroke. Delay in seeking medical attention may affect what treatments can be given to you. . Non-Emergent Contact Non-Emergency issues call your: Primary Care Provider . . "Provider Documentation" section prepared by Shawn Lion. Stroke Core Measures Reason no t-PA for Stroke: Treatment not indicated Reason no antithrom by day 2: Treatment not indicated Reason no antithrom at D/C: Treatment not indicated Reason no statin at D/C: Treatment provided - N/A Reason no anticoag w/a fib: Treatment not indicated VTE Core Measure Inpt VTE Proph given/why not?: SCD's
[2016-09-02] MEDS ORDERED: ASPIRIN 81 MG ECTAB PO SCH (09:00)
== END 2016-09-01 15:51 | disposition home or self-care (01) | DRG 69 ==
LOC: ENRESERVDT → ENRESERVTM → C.EDB 17:49 → C.MED 23:34
PROVIDERS: ADMIT Student in an Organized Health Care Education/Training Program; ATTEND Hospitalist
DX: G45.9 Transient cerebral ischemic attack, unspecified (principal); R20.9 Unspecified disturbances of skin sensation; R42 Dizziness and giddiness; R51 Headache; I67.1 Cerebral aneurysm, nonruptured; E23.6 Other disorders of pituitary gland; D64.9 Anemia, unspecified; I10 Essential (primary) hypertension; E78.00 Pure hypercholesterolemia, unspecified; E78.5 Hyperlipidemia, unspecified; K21.9 Gastro-esophageal reflux disease without esophagitis; Z23 Encounter for immunization; Z86.718 Personal history of other venous thrombosis and embolism; Z91.81 History of falling; Z79.02 Long term (current) use of antithrombotics/antiplatelets; Z79.899 Other long term (current) drug therapy